=== PATIENT | male | born 1965 | race Caucasian/White ===

== ENCOUNTER 2017-10-24 13:48 | Emergency (ER) | payer MEDICAID ==
[2017-10-24] MEDS ORDERED: DEXAMETHASONE 10 MG/ML VIAL IVP STA (14:12)
[2017-10-24] MEDS ORDERED: THIAMINE INJ 100 MG, FOLIC ACID INJ 1 MG in SODIUM CHLORIDE 0.9% 100ML 100 ML IV STA (14:12)
[2017-10-24] MEDS ORDERED: cefTRIAXone 1 GM in SODIUM CHLORIDE 0.9% MINIBAG 100 ML IV STA (14:12)
[2017-10-24] MEDS ORDERED: MULTIVITAMIN 10 ML in SODIUM CHLORIDE 0.9% 1,000 ML IV STA (14:12)
[2017-10-24] MEDS ORDERED: MAGNESIUM SULFATE 2 GRAM 2 GM/50 ML BAG IV STA (14:12)
[2017-10-24 14:18] LABS: BASOPHILS % (AUTO) 0.8 %; EOSINOPHILS # (AUTO) 0.1 10^3/uL (0.0-0.7); EOSINOPHILS % (AUTO) 1.8 %; HCT - HEMATOCRIT 43.8 % (42.0-52.0); HGB - HEMOGLOBIN 15.4 g/dL (14.0-18.0); LYMPHOCYTES % (AUTO) 49.1 %; MEAN CORPUSCULAR HEMOGLOBIN 34.3 pg (27.0-31.0); MEAN CORPUSCULAR HGB CONC 35.1 g/dL (32.0-36.0); MEAN CORPUSCULAR VOLUME 97.8 fL (80.0-94.0); MEAN PLATELET VOLUME 8.1 fL (7.4-11.4); MONOCYTES # (AUTO) 0.7 10^3/uL (0.0-1.0); MONOCYTES % (AUTO) 10.8 %; NEUTROPHILS # (AUTO) 2.3 10^3/uL (1.5-6.6); NEUTROPHILS % (AUTO) 37.5 %; NUCLEATED RED BLOOD CELLS AUTO 0.1 /100WBC; RED BLOOD COUNT 4.48 10^6/uL (4.70-6.10); RED CELL DISTRIBUTION WIDTH 13.7 % (12.0-15.0); UNCORRECTED WHITE BLOOD COUNT 6.1 x10^3/uL; WHITE BLOOD COUNT 6.1 x10^3/uL (4.8-10.8)
[2017-10-24 14:28] LABS: ALBUMIN/GLOBULIN RATIO 1.1 (1.0-2.2); BILIRUBIN,TOTAL 0.3 mg/dL (0.2-1.0); CALCIUM 8.8 mg/dL (8.5-10.3); CREATININE 0.7 mg/dL (0.6-1.2); POTASSIUM 4.3 mmol/L (3.5-5.0); TOTAL PROTEIN 7.9 g/dL (6.7-8.2)
[2017-10-24] MEDS ORDERED: cefTRIAXone 1 GM VIAL ONE (14:31)
[2017-10-24] MEDS ORDERED: DEXAMETHASONE 10 MG/ML VIAL ONE (14:31)
[2017-10-24] MEDS ORDERED: MAGNESIUM SULFATE 2 GRAM 2 GM/50 ML BAG IV ONE (14:49)
--- NOTE | 2017-10-24 14:54 | ED Physician Documentation ---
PD HPI CHEST PAIN - Stated complaint Stated Complaint: CHEST PX - Chief complaint Chief Complaint: General - History obtained from History obtained from: Patient - History of Present Illness Timing - onset: How many weeks ago (2) Timing - onset during: Rest Timing - duration: Weeks (2) Timing - details: Gradual onset, Still present Quality: Sharp, Pain Location: Left chest Radiation: Back Improved by: Rest Worsened by: Inspiration, Movement, Palpation Associated symptoms: Shortness of air, Cough Similar symptoms before: Has not had sx before Recently seen: Not recently seen - Additional information Additional information: 52-year-old alcoholic male has developed pain in the left lower chest. He has had a cough which is worse than his usual and he has pain with any inspiration or movement. He relates a history of continued drainage from his nose with yellow and green phlegm as well as coughing up some blood. Review of Systems Constitutional: reports: Chills, Fatigue. denies: Fever Eyes: denies: Decreased vision Ears: denies: Ear pain Nose: reports: Rhinorrhea / runny nose, Congestion Throat: denies: Sore throat Cardiac: reports: Chest pain / pressure. denies: Palpitations Respiratory: reports: Dyspnea, Cough GI: denies: Nausea, Vomiting : denies: Dysuria Skin: denies: Rash Musculoskeletal: denies: Neck pain, Back pain Neurologic: denies: Generalized weakness, Focal weakness, Numbness PD PAST MEDICAL HISTORY - Past Medical History Past Medical History: Yes Cardiovascular: None Respiratory: None Neuro: None Endocrine/Autoimmune: None GI: Hepatitis : None HEENT: Other Psych: Depression Musculoskeletal: None Derm: None - Past Surgical History Past Surgical History: Yes - Present Medications Home Medications: Ambulatory Orders Medication Instructions Recorded Confirmed Benzonatate [Tessalon] 100 - 200 mg PO TID PRN #20 capsule 10/24/17 cefUROXime axetil [Ceftin] 500 mg PO Q12H #20 tablet 10/24/17 - Allergies Allergies/Adverse Reactions: Allergies Allergy/AdvReac Type Severity Reaction Status Date / Time cephalexin monohydrate * Allergy Severe Respiratory Verified 10/12/16 21:25 [From Keflex] Penicillins Allergy Severe Respiratory Verified 10/12/16 21:25 fluoxetine HCl * AdvReac Hallucinati Verified 10/12/16 21:25 [From Prozac] ons - Social History Does the pt smoke?: Yes Smoking Status: Current every day smoker Does the pt drink ETOH?: Yes Does the pt have substance abuse?: Yes - Immunizations Immunizations are current?: Yes - POLST Patient has POLST: No PD ED PE NORMAL - Vitals Vital signs reviewed: Yes (hypertensive mild ) - General General: No acute distress, Well developed/nourished, Other (intoxicated with AOB, cooperative and talkative. ) - HEENT HEENT: Atraumatic, PERRL, EOMI, Other (both TM's are inflamed the nasal cavity on the right has a specific area of erythema and drainage that appears chronic. ) - Neck Neck: Supple, no meningeal sign, No bony TTP - Cardiac Cardiac: RRR, No murmur - Respiratory Respiratory: No respiratory distress, Other (diminished breath sounds and specific left lower chest wall point tenderness reproducing the symptoms the patient is complaining of. ) - Abdomen Abdomen: Soft, Non tender - Back Back: No CVA TTP, No spinal TTP - Derm Derm: Normal color, Warm and dry, No rash - Extremities Extremities: No deformity, No edema - Neuro Neuro: No motor deficit, No sensory deficit Eye Opening: Spontaneous Motor: Obeys Commands Verbal: Oriented GCS Score: 15 - Psych Psych: Normal mood, Normal affect Results - Vitals Vitals: Vital Signs - 24 hr 10/24/17 10/24/17 13:54 16:02 Temperature 36.6 C 36.7 C Heart Rate 83 85 Respiratory 14 16 Rate Blood Pressure 120/88 H 114/75 O2 Saturation 96 96 Oxygen O2 Source Room air - EKG (time done) 1354 Rate: Rate (enter#) (88) Rhythm: NSR, LAE [place]: LAD Intervals: Prolonged QT Ischemia: ST elevation c/w repol Compare to prior EKG: Changed from prior EKG (SPT 06-16-15 rate has decreased) Computer interpretation: Agree with computer - Labs Labs: Laboratory Tests 10/24/17 10/24/17 10/24/17 13:58 13:58 13:58 WBC 6.1 RBC 4.48 L Hgb 15.4 Hct 43.8 MCV 97.8 H MCH 34.3 H MCHC 35.1 RDW 13.7 Plt Count 260 MPV 8.1 Neut # 2.3 Lymph # 3.0 [place] # 0.7 Eos # 0.1 Baso # 0.0 Absolute Nucleated RBC 0.00 Nucleated RBC % 0.1 Sodium 139 Potassium 4.3 Chloride 104 Carbon Dioxide 23 Anion Gap 12.0 BUN 10 Creatinine 0.7 Estimated GFR (MDRD) 119 Glucose 104 H Calcium 8.8 Total Bilirubin 0.3 AST 28 ALT 27 Alkaline Phosphatase 66 Troponin I < 0.04 Total Protein 7.9 Albumin 4.1 Globulin 3.8 Albumin/Globulin Ratio 1.1 Lipase 32 Ethyl Alcohol 374.3 - Rads (name of study) 2 view chest Radiology: Prelim report reviewed (Impression: Normal two-view chest radiography.), EMP read indepedently, See rad report Procedures - IVC sono (time) 1400 Bedside IVC sono: IVC measures (cm) (1.2), IVC collapsed c insp (cm) (complete) , Dehydration PD MEDICAL DECISION MAKING - ED course Complexity details: reviewed old records, reviewed results, re-evaluated patient , considered differential, d/w patient ED course: 52-year-old alcoholic male presents to the emergency department while intoxicated with the complaint of pain in the left chest. He has been having symptoms for 3 days. He has been having a cough for the past 3 weeks worse than his usual he is coughing up some blood and is getting a lot of phlegm from his nose. On examination he has bilateral otitis and his chest x-ray appears clear his electrocardiogram is nondiagnostic and his troponin is negative after 3 days of symptoms. I doubt any coronary artery syndrome. He is treated in the emergency department with Toradol dexamethasone and Rocephin with improvement. We will discharge him with treatment for his cough and infection. Departure - Departure Disposition: 01 Home, Self Care Clinical Impression: Alcohol intoxication, Dehydration, Atypical chest pain Otitis media Qualifiers: Otitis media type: suppurative Chronicity: acute Laterality: bilateral Recurrence: not specified as recurrent Spontaneous tympanic membrane rupture: without spontaneous rupture Qualified Code(s): H66.003 - Acute suppurative otitis media without spontaneous rupture of ear drum, bilateral Instructions: ED Chest Pain Atypical Unkn Cause, ED Dehydration, ED Alcohol Intoxication, ED Otitis Media Acute Adult Follow-Up: [facility] [Provider Group] Prescriptions: Benzonatate [Tessalon] 100 - 200 mg PO TID PRN #20 capsule PRN Reason: Cough cefUROXime axetil [Ceftin] 500 mg PO Q12H #20 tablet Discharge Date/Time: 10/24/17 16:22
--- NOTE | 2017-10-24 14:59 | XRAY Preliminary Report ---
Exam: XR CHEST 2 VIEW PA/LAT IMPRESSION: Normal 2-view chest radiography. [facility] SITE ID: [id number]
--- NOTE | 2017-10-24 15:01 | XRAY Report ---
EXAM: CHEST RADIOGRAPHY EXAM DATE: 10/24/2017 02:35 PM. CLINICAL HISTORY: LL chest pain/cough. COMPARISON: None. TECHNIQUE: 2 views. FINDINGS: Lungs/Pleura: No focal opacities evident. No pleural effusion. No pneumothorax. Normal volumes. Mediastinum: Heart and mediastinal contours are unremarkable. Other: None. IMPRESSION: Normal 2-view chest radiography. [facility] Referring Provider Line: [phone] SITE ID: [id number]
[2017-10-24 16:03] VITALS: BP 114/75
== END 2017-10-24 16:22 | disposition home or self-care (01) ==
LOC: ED 13:48
DX: F10.129 Alcohol abuse with intoxication, unspecified (principal); E86.0 Dehydration; R07.9 Chest pain, unspecified; H66.003 Acute suppurative otitis media without spontaneous rupture of ear drum, bilateral; R94.31 Abnormal electrocardiogram [ECG] [EKG]; K75.9 Inflammatory liver disease, unspecified; Y90.8 Blood alcohol level of 240 mg/100 ml or more
CPT/HCPCS: 36415; 71020; 80053; 80320; 83690; 84484; 85025; 93005; 96365; 96367; 96368; 96375; 99283; 99284; J3411

== ENCOUNTER 2018-01-24 22:51 | Outpatient (CLI) | payer MEDICAID | END 2018-01-24 22:52 | disposition critical access hospital (66) | LOC: EMS 22:51 | PROVIDERS: ATTEND Surgery | DX: R07.81 Pleurodynia (principal); S09.90XA Unspecified injury of head, initial encounter; X58.XXXA Exposure to other specified factors, initial encounter | CPT/HCPCS: A0425; A0429 ==

== ENCOUNTER 2018-01-24 23:09 | Emergency (ER) | payer MEDICAID ==
[2018-01-24 23:16] VITALS: BP 145/107
--- NOTE | 2018-01-24 23:17 | ED Physician Documentation ---
PD HPI TRUNK INJURY - Stated complaint Stated Complaint: GLF - LEFT FLANK PAIN, RIB PAIN - Chief complaint Chief Complaint: Ext Problem - History obtained from History obtained from: Patient - History of Present Illness Location: Right chest Type of injury: Fall Timing - onset: How many hours ago (1.5) Timing - details: Abrupt onset Pain level now: 8 Quality: Pain Improved by: Rest Worsened by: Moving, Palpating Associated symtptoms: No: Weakness, Numbness, Discoloration, Feel faint, Syncope Contributing factors: No: Anticoagulated Recently seen: Not recently seen - Additional information Additional information: patient says he tripped and fell at home approximately 90 minutes [employer]. He does not know what he struck, but he had sudden onset right chest wall pain. He says he has been drinking alcohol tonight. Denies head injury. He subsequently called 911 because of steadily worsening right chest wall pain. Review of Systems Cardiac: reports: Chest pain / pressure Respiratory: reports: Dyspnea. denies: Cough, Hemoptysis, Wheezing GI: denies: Abdominal Pain, Nausea, Vomiting PD PAST MEDICAL HISTORY - Past Medical History Cardiovascular: None Respiratory: None Neuro: None Endocrine/Autoimmune: None GI: Hepatitis : None HEENT: Other Psych: Depression Musculoskeletal: None Derm: None - Past Surgical History Past Surgical History: Yes - Present Medications Home Medications: Ambulatory Orders Medication Instructions Recorded Confirmed Lidocaine Patch 5% [Lidoderm Patch] 1 each TOP DAILY PRN #14 patch 01/25/18 - Allergies Allergies/Adverse Reactions: Allergies Allergy/AdvReac Type Severity Reaction Status Date / Time cephalexin monohydrate * Allergy Severe Respiratory Verified 01/24/18 23:16 [From Keflex] Penicillins Allergy Severe Respiratory Verified 01/24/18 23:16 fluoxetine HCl * AdvReac Hallucinati Verified 01/24/18 23:16 [From Prozac] ons - Social History Does the pt smoke?: Yes Smoking Status: Current every day smoker Does the pt drink ETOH?: Yes Does the pt have substance abuse?: Yes - Immunizations Immunizations are current?: Yes - POLST Patient has POLST: No PD ED PE NORMAL - Vitals Vital signs reviewed: Yes - General General: Alert and oriented X 3, Well developed/nourished, Other (NAD at rest at times, but appears to have painful discomfort with some movements, as well as when coughing) - Neck Neck: No bony TTP - Cardiac Cardiac: RRR, No murmur - Respiratory Respiratory: No respiratory distress, Other (mild bilateral end-expiratory wheezing) - Abdomen Abdomen: Soft, Non tender - Back Back: No spinal TTP - Derm Derm: Normal color, Warm and dry - Extremities Extremities: No tenderness to palpate, Normal ROM s pain, No edema - Neuro Neuro: Alert and oriented X 3, manager of data 2-12 intact, No motor deficit, No sensory deficit, Normal speech Eye Opening: Spontaneous Motor: Obeys Commands Verbal: Oriented GCS Score: 15 PD ED PE EXPANDED - Visual Whole body visual: 1 - tenderness Results - Vitals Vitals: Vital Signs - 24 hr 01/24/18 01/25/18 01/25/18 23:10 00:54 01:28 Temperature 36.7 C Heart Rate 86 69 80 Respiratory 16 16 22 Rate Blood Pressure 145/107 H 145/107 H O2 Saturation 100 97 Oxygen O2 Source Room air - Rads (name of study) right rib xrays with PA chest Radiology: Prelim report reviewed, See rad report PD MEDICAL DECISION MAKING - ED course Complexity details: reviewed results, re-evaluated patient, considered differential, d/w patient ED course: Patient has three rib fractures on xray without evidence of complication such as pneumo/hemothorax. He appears to be in appropriate painful distress; he repeatedly and adamantly refuses opiate/narcotic pain medication due to h/o abuse/addiction. He initially requests, repeatedly, an injection of medication that "knocks me out", which he indicates he has received in the past when he's been in the ED with agitation due to intoxication. Looking in previous records, he has been given zyprexa in the past. I explained to him that this would not be an appropriate medication for pain control. Given the amount of discomfort he is in, I tried to discuss with him the possibility of using this medication provided he was willing to stay in the ED for several hours (probably until the morning) because he would likely become very drowsy. However, as with some of my previous encounters with this patient, he repeatedly interrupted me as I tried to explain this option. He is argumentative at times, and is reluctant to be given any medication because of concern that I will give him either a narcotic or else a medication that would cause problems in light of his heavy, regular alcohol use. He eventually agreed to IM Toradol. He is difficult to converse with, frequently interrupting. He eventually called for a cab on his phone. He agreed to lidocaine patch. He was also given albuterol neb during ED stay for dyspnea which seemed to be separate from the pleuritic pain, and on reexam of lungs, wheezing had resolved. Departure - Departure Disposition: 01 Home, Self Care Clinical Impression: Ribs, multiple fractures Qualifiers: Encounter type: initial encounter Fracture type: closed Laterality: right Qualified Code(s): S22.41XA - Multiple fractures of ribs, right side, initial encounter for closed fracture Condition: Good Instructions: ED Fx Rib Follow-Up: [facility] [Provider Group] [facility] [Provider Group] Prescriptions: Lidocaine Patch 5% [Lidoderm Patch] 1 each TOP DAILY PRN #14 patch PRN Reason: Pain Comments: If the lidocaine patch helps with the pain overnight, then fill the prescription for the lidocaine patches and use them as directed. If you do not feel any relief with the patch, then do not fill the prescription for it. You should fill the prescription for the inhaler and use it as directed, as needed for shortness of breath. Discharge Date/Time: 01/25/18 01:31
[2018-01-25] MEDS ORDERED: KETOROLAC 60 MG/2 ML VIAL IM STA (00:10)
[2018-01-25] MEDS ORDERED: ALBUTEROL NEB 2.5 MG/3 ML INH STA (00:37)
--- NOTE | 2018-01-25 00:50 | XRAY Preliminary Report ---
Exam: XR RIBS W/PA CHEST RT IMPRESSION: 1. Fractures of approximately the right second, fourth, and fifth ribs. [facility] SITE ID: [id number]
--- NOTE | 2018-01-25 00:51 | XRAY Report ---
EXAM: RIGHT RIB RADIOGRAPHY EXAM DATE: 01/25/2018 12:11 AM. CLINICAL HISTORY: Fall, pain and tenderness right ribs. COMPARISON: 10/24/2017 and 04/01/2012. TECHNIQUE: 1 view of the chest and 2 views of the ribs. FINDINGS: Bones: Fractures of approximately the right second, fourth, and fifth ribs. Old fracture of the right seventh rib. Lungs: No alveolar consolidation or pleural effusion seen. No pneumothorax identified. Mediastinum: Within exam limitations, cardiomediastinal silhouette is unremarkable. Other: None. IMPRESSION: 1. Fractures of approximately the right second, fourth, and fifth ribs. [facility] Referring Provider Line: [phone] SITE ID: [id number]
[2018-01-25] MEDS ORDERED: LIDOCAINE PATCH 5% TOP STA (01:20)
--- NOTE | 2018-01-25 13:58 | ED Physician Documentation ---
ED Addendum - Addendum Addendum: 01/25/18 13:58 Took call from pharmacy, lidocaine patch is not covered, according to the chart there is a strong history of alcoholism as such I was not willing to prescribe a narcotic especially without seeing him personally. I told the pharmd he could have ibuprofen, 800 mg p.o. every 6 hours as needed for pain #30.
== END 2018-01-25 01:31 | disposition home or self-care (01) ==
LOC: EDUNIT# → ED 23:09
DX: S22.41XA Multiple fractures of ribs, right side, initial encounter for closed fracture (principal); W01.0XXA Fall on same level from slipping, tripping and stumbling without subsequent striking against object, initial encounter; K75.9 Inflammatory liver disease, unspecified; F17.200 Nicotine dependence, unspecified, uncomplicated
CPT/HCPCS: 71101; 94640; 96372; 99284; A9270; J7613

== ENCOUNTER 2018-02-23 17:29 | Emergency (ER) | payer MEDICAID ==
[2018-02-23 20:24] LABS: BASOPHILS % (AUTO) 0.6 %; EOSINOPHILS # (AUTO) 0.1 10^3/uL (0.0-0.7); EOSINOPHILS % (AUTO) 1.1 %; LYMPHOCYTES # (AUTO) 2.4 10^3/uL (1.5-3.5); LYMPHOCYTES % (AUTO) 35.4 %; MEAN CORPUSCULAR HGB CONC 32.9 g/dL (32.0-36.0); MEAN CORPUSCULAR VOLUME 97.4 fL (80.0-94.0); MEAN PLATELET VOLUME 8.1 fL (7.4-11.4); MONOCYTES # (AUTO) 0.5 10^3/uL (0.0-1.0); MONOCYTES % (AUTO) 7.4 %; NEUTROPHILS # (AUTO) 3.8 10^3/uL (1.5-6.6); NEUTROPHILS % (AUTO) 55.5 %; PLT - PLATELET COUNT 243 10^3/uL (130-450); RED BLOOD COUNT 4.68 10^6/uL (4.70-6.10); RED CELL DISTRIBUTION WIDTH 13.5 % (12.0-15.0); WHITE BLOOD COUNT 6.8 x10^3/uL (4.8-10.8)
[2018-02-23 20:34] LABS: ALBUMIN 4.8 g/dL (3.2-5.5); ALBUMIN/GLOBULIN RATIO 1.5 (1.0-2.2); BILIRUBIN,TOTAL 0.5 mg/dL (0.2-1.0); CALCIUM 8.5 mg/dL (8.5-10.3); CREATININE 0.9 mg/dL (0.6-1.2); TOTAL PROTEIN 8.1 g/dL (6.7-8.2)
--- NOTE | 2018-02-23 20:43 | XRAY Report ---
EXAM: CHEST RADIOGRAPHY EXAM DATE: 02/23/2018 08:26 PM. CLINICAL HISTORY: Chest pain, sob. COMPARISON: None. TECHNIQUE: 2 views. FINDINGS: Lungs/Pleura: No focal opacities evident. No pleural effusion. No pneumothorax. Normal volumes. Mediastinum: The heart size is normal. Other: None. IMPRESSION: Negative for an acute cardiopulmonary abnormality. [facility] Referring Provider Line: [phone] SITE ID: [id number]
--- NOTE | 2018-02-23 21:12 | ED Physician Documentation ---
PD HPI CHEST PAIN - Stated complaint Stated Complaint: CHEST PX/SOA - Chief complaint Chief Complaint: Cardiac - History obtained from History obtained from: Patient - History of Present Illness Timing - onset: How many hours ago (8) Timing - onset during: Rest Timing - details: Gradual onset, Intermittant Quality: Pressure, Sharp Location: Left chest Associated symptoms: No: Shortness of air, Diaphoresis, Nausea, Vomiting, Feeling faint / dizzy Similar symptoms before: Has not had sx before Recently seen: Not recently seen - Additional information Additional information: Patient is a 52 year old alcoholic male who is presenting to the emergency department for chest pain. Patient states that this morning he woke up with left sided chest pain. He states that he went to work but then came home and drank all day. He has had a history of rib fractures on the right but this is different according to the patient. Review of Systems Constitutional: denies: Fever, Chills Eyes: reports: Reviewed and negative Ears: reports: Reviewed and negative Nose: reports: Reviewed and negative Throat: reports: Reviewed and negative Cardiac: reports: Chest pain / pressure. denies: Palpitations, Pedal edema Respiratory: denies: Dyspnea, Cough, Wheezing GI: denies: Nausea, Vomiting : reports: Reviewed and negative Skin: denies: Lesions, Abrasion (s), Laceration (s) Musculoskeletal: denies: Back pain, Extremity pain, Extremity swelling Neurologic: reports: Reviewed and negative Endocrine: reports: Reviewed and negative PD PAST MEDICAL HISTORY - Past Medical History Past Medical History: Yes Cardiovascular: None Respiratory: None Neuro: None Endocrine/Autoimmune: None GI: Hepatitis : None HEENT: Other Psych: Depression Musculoskeletal: None Derm: None Other Past Medical History: etoh - Past Surgical History Past Surgical History: Yes - Present Medications Home Medications: Ambulatory Orders Medication Instructions Recorded Confirmed Lidocaine Patch 5% [Lidoderm Patch] 1 each TOP DAILY PRN #14 patch 01/25/18 - Allergies Allergies/Adverse Reactions: Allergies Allergy/AdvReac Type Severity Reaction Status Date / Time cephalexin monohydrate * Allergy Severe Respiratory Verified 01/24/18 23:16 [From Keflex] Penicillins Allergy Severe Respiratory Verified 01/24/18 23:16 fluoxetine HCl * AdvReac Hallucinati Verified 01/24/18 23:16 [From Prozac] ons - Social History Does the pt smoke?: Yes Smoking Status: Current every day smoker Does the pt drink ETOH?: Yes Does the pt have substance abuse?: Yes - Immunizations Immunizations are current?: Yes - POLST Patient has POLST: No PD ED PE NORMAL - Vitals Vital signs reviewed: Yes - General General: Alert and oriented X 3, No acute distress, Well developed/nourished - HEENT HEENT: Atraumatic, PERRL - Neck Neck: Supple, no meningeal sign - Cardiac Cardiac: RRR, No murmur - Respiratory Respiratory: No respiratory distress, Clear bilaterally - Abdomen Abdomen: Soft, Non tender, Non distended - Derm Derm: Normal color, Warm and dry, No rash - Extremities Extremities: No calf tenderness / cord - Neuro Neuro: Alert and oriented X 3, No motor deficit, Normal speech Eye Opening: Spontaneous Motor: Obeys Commands Verbal: Oriented GCS Score: 15 Results - Vitals Vitals: Vital Signs - 24 hr 02/23/18 17:38 Temperature 35.7 C L Heart Rate 96 Respiratory 17 Rate Blood Pressure 116/100 H O2 Saturation 100 Oxygen O2 Source Room air - EKG (time done) 1741 Rate: Rate (enter#) (88) Rhythm: NSR [place]: Normal QRS: Normal Ischemia: ST elevation c/w repol - Labs Labs: Laboratory Tests 02/23/18 02/23/18 02/23/18 20:15 20:15 20:15 WBC 6.8 RBC 4.68 L Hgb 15.0 Hct 45.5 MCV 97.4 H MCH 32.0 H MCHC 32.9 RDW 13.5 Plt Count 243 MPV 8.1 Neut # 3.8 Lymph # 2.4 [place] # 0.5 Eos # 0.1 Baso # 0.0 Absolute Nucleated RBC 0.00 Nucleated RBC % 0.0 Sodium 134 L Potassium 3.4 L Chloride 100 L Carbon Dioxide 21 Anion Gap 13.0 BUN 12 Creatinine 0.9 Estimated GFR (MDRD) 89 Glucose 108 H Calcium 8.5 Total Bilirubin 0.5 AST 34 ALT 41 Alkaline Phosphatase 69 Troponin I < 0.04 B-Natriuretic Peptide Total Protein 8.1 Albumin 4.8 Globulin 3.3 Albumin/Globulin Ratio 1.5 Lipase 20 L 02/23/18 20:15 WBC RBC Hgb Hct MCV MCH MCHC RDW Plt Count MPV Neut # Lymph # [place] # Eos # Baso # Absolute Nucleated RBC Nucleated RBC % Sodium Potassium Chloride Carbon Dioxide Anion Gap BUN Creatinine Estimated GFR (MDRD) Glucose Calcium Total Bilirubin AST ALT Alkaline Phosphatase Troponin I B-Natriuretic Peptide 9 Total Protein Albumin Globulin Albumin/Globulin Ratio Lipase - Rads (name of study) chest x-ray Radiology: Final report received (normal) PD MEDICAL DECISION MAKING - ED course Complexity details: reviewed old records, reviewed results, re-evaluated patient , considered differential, d/w patient ED course: patient was seen and examined at bedside. Patient was in no distress. ekg was performed and was normal sinus. Patient's diagnostics were all within normal limits. Patient had a heart score of 1. Patient required no further work up and was stable for discharge with outpatient follow up. Departure - Departure Disposition: 01 Home, Self Care Clinical Impression: Atypical chest pain Condition: Good Instructions: ED Chest Pain Atypical Unkn Cause Follow-Up: primary,care provider [Other] - Within 3 Days Comments: Your diagnostics today were within normal limits. There is no acute cardio- pulmonary abnormality appreciated. this is only a snapshot in time and it is important that you follow up with your doctor for further evaluation and care.
[2018-02-23 21:20] VITALS: BP 122/92
== END 2018-02-23 21:20 | disposition home or self-care (01) ==
LOC: ED 17:29
DX: R07.89 Other chest pain (principal); F17.200 Nicotine dependence, unspecified, uncomplicated; Z87.81 Personal history of (healed) traumatic fracture
CPT/HCPCS: 36415; 71046; 80053; 83690; 83880; 84484; 85025; 93005; 99283; 99284

== ENCOUNTER 2018-05-03 17:47 | Outpatient (CLI) | payer MEDICAID | END 2018-05-03 17:48 | disposition critical access hospital (66) | LOC: EMS 17:47 | PROVIDERS: ATTEND Surgery | DX: S01.81XA Laceration without foreign body of other part of head, initial encounter (principal); S50.312A Abrasion of left elbow, initial encounter; S50.311A Abrasion of right elbow, initial encounter; R55 Syncope and collapse; R05 Cough; W18.39XA Other fall on same level, initial encounter; Y92.029 Unspecified place in mobile home as the place of occurrence of the external cause | CPT/HCPCS: A0425; A0429 ==

== ENCOUNTER 2018-05-03 18:11 | Emergency (ER) | payer MEDICAID ==
[2018-05-03 19:44] LABS: MUDS CUTOFF CONCENTRATIONS CUTOFF CONC BELOW:
[2018-05-03 19:55] LABS: BASOPHILS % (AUTO) 0.9 %; EOSINOPHILS # (AUTO) 0.1 10^3/uL (0.0-0.7); EOSINOPHILS % (AUTO) 1.2 %; HGB - HEMOGLOBIN 13.7 g/dL (14.0-18.0); LYMPHOCYTES # (AUTO) 1.8 10^3/uL (1.5-3.5); LYMPHOCYTES % (AUTO) 33.9 %; MEAN CORPUSCULAR HEMOGLOBIN 32.3 pg (27.0-31.0); MEAN CORPUSCULAR HGB CONC 33.4 g/dL (32.0-36.0); MEAN CORPUSCULAR VOLUME 96.6 fL (80.0-94.0); MEAN PLATELET VOLUME 7.6 fL (7.4-11.4); MONOCYTES # (AUTO) 0.6 10^3/uL (0.0-1.0); MONOCYTES % (AUTO) 11.8 %; NEUTROPHILS # (AUTO) 2.8 10^3/uL (1.5-6.6); NEUTROPHILS % (AUTO) 52.2 %; PLT - PLATELET COUNT 196 10^3/uL (130-450); RED BLOOD COUNT 4.25 10^6/uL (4.70-6.10); RED CELL DISTRIBUTION WIDTH 14.4 % (12.0-15.0); WHITE BLOOD COUNT 5.4 x10^3/uL (4.8-10.8)
[2018-05-03 19:59] LABS: AMPHETAMINE SCREEN,URINE NEGATIVE (NEGATIVE); BENZODIAZEPINES SCREEN, URINE NEGATIVE (NEGATIVE); COCAINE SCREEN URINE NEGATIVE (NEGATIVE); METHADONE SCREEN, URINE NEGATIVE (NEGATIVE); METHAMPHETAMINES SCREEN, URINE NEGATIVE (NEGATIVE); OPIATE SCREEN, URINE NEGATIVE (NEGATIVE); OXYCODONE SCREEN, URINE NEGATIVE (NEGATIVE); PROPOXYPHENE SCREEN, URINE NEGATIVE (NEGATIVE); TRICYCLIC ANTIDEPRESSANT,URINE NEGATIVE (NEGATIVE)
--- NOTE | 2018-05-03 20:15 | XRAY Report ---
EXAM: CHEST RADIOGRAPHY EXAM DATE: 05/03/2018 07:45 PM. CLINICAL HISTORY: Cough. COMPARISON: 02/23/18. TECHNIQUE: 1 view. FINDINGS: Lungs/Pleura: No dense consolidation. No large effusion or pneumothorax. No pulmonary edema. Mediastinum: Heart and mediastinal contours are unremarkable. Other: None. IMPRESSION: No acute radiographic pulmonary abnormalities. [facility] Referring Provider Line: [phone] SITE ID: [id number]
--- NOTE | 2018-05-03 20:15 | XRAY Preliminary Report ---
Exam: XR CHEST 1 VIEW X-RAY IMPRESSION: No acute radiographic pulmonary abnormalities. [facility] SITE ID: [id number]
[2018-05-03 20:19] LABS: ALBUMIN 4.1 g/dL (3.2-5.5); ALBUMIN/GLOBULIN RATIO 1.3 (1.0-2.2); BILIRUBIN,TOTAL 0.4 mg/dL (0.2-1.0); CALCIUM 8.8 mg/dL (8.5-10.3); CREATININE 0.8 mg/dL (0.6-1.2); TOTAL PROTEIN 7.3 g/dL (6.7-8.2)
[2018-05-03] MEDS ORDERED: POTASSIUM CHLORIDE 20 MEQ TABLET PO STA (20:37)
[2018-05-03] MEDS ORDERED: POTASSIUM CHLOR 10 MEQ/100 ML 10 MEQ/100 ML BAG IV ONE (20:37)
[2018-05-03] MEDS ORDERED: CETIRIZINE 10 MG TABLET PO STA (20:38)
--- NOTE | 2018-05-03 21:18 | ED Physician Documentation ---
PD HPI SYNCOPE - Stated complaint Stated Complaint: SYNCOPE - Chief complaint Chief Complaint: Resp - History obtained from History obtained from: Patient, EMS - History of Present Illness Witnessed: Unwitnessed Timing - onset: Today Preceding symptoms: Other (cough) Contributing factors: Other (intoxicated) Similar symptoms before: Work up / diagnostics Recently seen: Not recently seen - Additional information Additional information: Patient is a 53 year old male with a history of alcohol abuse who is presenting to the emergency department for syncope. patient states that he has had a cough and today while he was on the street he had a coughing fit and coughed so much he passed out. Patient also admits drinking throughout the day today. Review of Systems Ten Systems: 10 systems reviewed and negative Neurologic: reports: Syncope. denies: Headache, Head injury PD PAST MEDICAL HISTORY - Past Medical History Past Medical History: Yes Cardiovascular: None Respiratory: None Endocrine/Autoimmune: None GI: Hepatitis : None HEENT: Other Psych: Depression Musculoskeletal: None Derm: None - Past Surgical History Past Surgical History: Yes - Present Medications Home Medications: Ambulatory Orders Medication Instructions Recorded Confirmed Lidocaine Patch 5% [Lidoderm Patch] 1 each TOP DAILY PRN #14 patch 01/25/18 Albuterol Sulfate [Proair Hfa 05/03/18 Inhaler] Fluticasone 44 Mcg [Flovent] 05/03/18 - Allergies Allergies/Adverse Reactions: Allergies Allergy/AdvReac Type Severity Reaction Status Date / Time cephalexin monohydrate * Allergy Severe Respiratory Verified 05/03/18 19:14 [From Keflex] Penicillins Allergy Severe Respiratory Verified 05/03/18 19:14 fluoxetine HCl * AdvReac Hallucinati Verified 05/03/18 19:14 [From Prozac] ons - Social History Does the pt smoke?: Yes Smoking Status: Current every day smoker Does the pt drink ETOH?: Yes Does the pt have substance abuse?: Yes - Immunizations Immunizations are current?: Yes - POLST Patient has POLST: No PD ED PE NORMAL - Vitals Vital signs reviewed: Yes - General General: Alert and oriented X 3, No acute distress - HEENT HEENT: Atraumatic, Moist mucous membranes - Neck Neck: No bony TTP - Cardiac Cardiac: RRR - Respiratory Respiratory: No respiratory distress - Abdomen Abdomen: Non distended - Derm Derm: Normal color, Warm and dry - Extremities Extremities: No deformity - Neuro Neuro: Alert and oriented X 3, 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, No motor deficit, No sensory deficit, Normal speech Eye Opening: Spontaneous Motor: Obeys Commands Verbal: Oriented GCS Score: 15 Results - Vitals Vitals: Vital Signs - 24 hr 05/03/18 05/03/18 05/03/18 18:17 19:08 21:13 Temperature 36.7 C Heart Rate 109 H 113 H 98 Respiratory 98 H 26 H 16 Rate Blood Pressure 123/89 H 119/57 L 108/67 O2 Saturation 95 95 05/03/18 21:53 Temperature Heart Rate 100 Respiratory 16 Rate Blood Pressure 111/69 O2 Saturation 95 Oxygen O2 Source Room air - EKG (time done) 1817 Rate: Rate (enter#) (103) Rhythm: Sinus tachycardia [place]: Anterior hemiblock Intervals: Normal [place] QRS: Normal Ischemia: Normal ST segments Compare to prior EKG: Unchanged from prior EKG - Labs Labs: Laboratory Tests 05/03/18 05/03/18 05/03/18 18:46 19:45 19:45 WBC 5.4 RBC 4.25 L Hgb 13.7 L Hct 41.0 L MCV 96.6 H MCH 32.3 H MCHC 33.4 RDW 14.4 Plt Count 196 MPV 7.6 Neut # (Auto) 2.8 Lymph # (Auto) 1.8 [place] # (Auto) 0.6 Eos # (Auto) 0.1 Baso # (Auto) 0.0 Absolute Nucleated RBC 0.00 Nucleated RBC % 0.1 Sodium 134 L Potassium 2.9 L Chloride 101 Carbon Dioxide 20 L Anion Gap 13.0 BUN 11 Creatinine 0.8 Estimated GFR (MDRD) 102 Glucose 146 H Calcium 8.8 Total Bilirubin 0.4 AST 39 ALT 40 Alkaline Phosphatase 66 Troponin I Total Protein 7.3 Albumin 4.1 Globulin 3.2 Albumin/Globulin Ratio 1.3 Lipase 32 Urine Opiates Screen NEGATIVE Ur Oxycodone Screen NEGATIVE Urine Methadone Screen NEGATIVE Ur Propoxyphene Screen NEGATIVE Ur Barbiturates Screen NEGATIVE Ur Tricyclics Screen NEGATIVE Ur Phencyclidine Scrn NEGATIVE Ur Amphetamine Screen NEGATIVE U Methamphetamines Scrn NEGATIVE U Benzodiazepines Scrn NEGATIVE Urine Cocaine Screen NEGATIVE U Cannabinoids Screen NEGATIVE Ethyl Alcohol 224.7 05/03/18 19:45 WBC RBC Hgb Hct MCV MCH MCHC RDW Plt Count MPV Neut # (Auto) Lymph # (Auto) [place] # (Auto) Eos # (Auto) Baso # (Auto) Absolute Nucleated RBC Nucleated RBC % Sodium Potassium Chloride Carbon Dioxide Anion Gap BUN Creatinine Estimated GFR (MDRD) Glucose Calcium Total Bilirubin AST ALT Alkaline Phosphatase Troponin I < 0.04 Total Protein Albumin Globulin Albumin/Globulin Ratio Lipase Urine Opiates Screen Ur Oxycodone Screen Urine Methadone Screen Ur Propoxyphene Screen Ur Barbiturates Screen Ur Tricyclics Screen Ur Phencyclidine Scrn Ur Amphetamine Screen U Methamphetamines Scrn U Benzodiazepines Scrn Urine Cocaine Screen U Cannabinoids Screen Ethyl Alcohol PD MEDICAL DECISION MAKING - ED course Complexity details: reviewed old records, reviewed results, re-evaluated patient , considered differential, d/w patient ED course: patient was seen and examined at bedside. ekg was performed and was within normal limits. labs were drawn and urine was collected. Patient's diagnostics were within normal limits aside from low potassium. Patient's potassium was replaced both orally and IV. Patient required no further work up and was stable for for discharge with outpatient follow. Departure - Departure Disposition: 01 Home, Self Care Clinical Impression: Syncope Condition: Good Instructions: ED Fainting Unkn Cause Follow-Up: primary,care provider [Other] - Within 3 Days Comments: Your diagnostics today were within normal limits, aside from your potassium that was slightly low but has been replaced. It is important that you try to stay well hydrated and eat a balanced diet while eating. You should follow up with your doctor if your symptoms become more frequent. You should try to refrain such excessive drinking as it is likely exacerbating your issues. Discharge Date/Time: 05/03/18 22:13
[2018-05-03 21:54] VITALS: BP 111/69
== END 2018-05-03 22:13 | disposition home or self-care (01) ==
LOC: EDUNIT# → ED 18:11
DX: R55 Syncope and collapse (principal); R00.0 Tachycardia, unspecified; K75.9 Inflammatory liver disease, unspecified; F17.200 Nicotine dependence, unspecified, uncomplicated
CPT/HCPCS: 36415; 71045; 80053; 80306; 80320; 83690; 84484; 85025; 93005; 96365; 99284; A9270

== ENCOUNTER → 2018-05-06 | Outpatient (CLI) | payer MEDICAID | LOC: RT.N 10:46 | PROVIDERS: ATTEND Family Medicine | DX: Z01.810 Encounter for preprocedural cardiovascular examination (principal); M25.561 Pain in right knee; J44.9 Chronic obstructive pulmonary disease, unspecified | CPT/HCPCS: 93005 ==

== ENCOUNTER 2018-05-09 10:33 | Outpatient (CLI) | payer MEDICAID ==
[2018-05-09 13:36] LABS: BASOPHILS % (AUTO) 0.6 %; EOSINOPHILS # (AUTO) 0.1 10^3/uL (0.0-0.7); EOSINOPHILS % (AUTO) 1.7 %; HGB - HEMOGLOBIN 15.1 g/dL (14.0-18.0); LYMPHOCYTES % (AUTO) 43.3 %; MEAN CORPUSCULAR HGB CONC 32.9 g/dL (32.0-36.0); MEAN CORPUSCULAR VOLUME 100.3 fL (80.0-94.0); MONOCYTES # (AUTO) 0.5 10^3/uL (0.0-1.0); MONOCYTES % (AUTO) 11.1 %; NEUTROPHILS % (AUTO) 43.3 %; PLT - PLATELET COUNT 255 10^3/uL (130-450); RED BLOOD COUNT 4.58 10^6/uL (4.70-6.10); RED CELL DISTRIBUTION WIDTH 14.2 % (12.0-15.0); WHITE BLOOD COUNT 4.7 x10^3/uL (4.8-10.8)
[2018-05-09 13:54] LABS: HB2 TOTAL 17.2 g/dL; HEMOGLOBIN A1C 0.53 g/dL
[2018-05-09 14:16] LABS: CALCIUM 8.5 mg/dL (8.5-10.3); CREATININE 0.7 mg/dL (0.6-1.2)
== END 2018-05-09 10:34 | disposition home or self-care (01) ==
LOC: LAB.N 10:33
PROVIDERS: ATTEND Family Medicine
DX: Z01.812 Encounter for preprocedural laboratory examination (principal); J44.9 Chronic obstructive pulmonary disease, unspecified; M25.561 Pain in right knee; R73.9 Hyperglycemia, unspecified
CPT/HCPCS: 36415; 80048; 83036; 85025

== ENCOUNTER 2018-05-10 13:15 | Outpatient (CLI) | payer MEDICAID ==
[2018-05-10] MEDS ORDERED: ALBUTEROL NEB 2.5 MG/3 ML INH ONE (16:00)
[2018-05-10] MEDS ORDERED: ALBUTEROL NEB 2.5 MG/3 ML INH SCH (16:00)
== END 2018-05-10 13:16 | disposition home or self-care (01) ==
LOC: RT 13:15
PROVIDERS: ATTEND Nurse Practitioner
DX: J44.9 Chronic obstructive pulmonary disease, unspecified (principal)
CPT/HCPCS: 94060; 94664

== ENCOUNTER 2018-12-08 15:07 | Outpatient (CLI) | payer MEDICAID ==
--- NOTE | 2018-12-09 11:02 | Ultrasound Report ---
Reason: SCROTAL PAIN Procedure Date: 12/08/2018 Accession Number: [id number] / [id number] Procedure: US - Testicle w/Doppler CPT Code: FULL RESULT: EXAM: SCROTAL ULTRASOUND EXAM DATE: 12/08/2018 04:00 PM. CLINICAL HISTORY: Scrotal pain. COMPARISON: None. TECHNIQUE: Real-time scanning was performed with static images obtained. Color-flow images were utilized. FINDINGS: Right: Testis: 3.3 x 2.7 x 1.8 cm. Normal size and echotexture. No mass, calcification, or abnormal blood flow. Epididymis: 3.0 x 0.7 x 0.7 cm. Normal size and echotexture. No mass or abnormal blood flow. Hydrocele: None. Varicocele: None. Left: Testis: 2.5 x 2.7 x 1.8 cm. Normal size and echotexture. No mass, calcification, or abnormal blood flow. Epididymis: 2.0 x 0.8 x 0.8 cm. Normal size and echotexture. No mass or abnormal blood flow. Hydrocele: None. Varicocele: None. IMPRESSION: Normal scrotal ultrasound. RADIA
== END 2018-12-08 15:08 | disposition home or self-care (01) ==
LOC: DI 15:07
PROVIDERS: ATTEND Family Medicine
DX: N50.82 Scrotal pain (principal)
CPT/HCPCS: 76870; 93975

== ENCOUNTER 2019-02-06 13:30 | Outpatient (CLI) | payer MEDICAID ==
[2019-02-06 19:29] LABS: BASOPHILS % (AUTO) 0.9 %; EOSINOPHILS % (AUTO) 0.9 %; HGB - HEMOGLOBIN 14.5 g/dL (14.0-18.0); LYMPHOCYTES # (AUTO) 1.3 10^3/uL (1.5-3.5); LYMPHOCYTES % (AUTO) 25.3 %; MEAN CORPUSCULAR HEMOGLOBIN 32.5 pg (27.0-31.0); MEAN CORPUSCULAR HGB CONC 32.9 g/dL (32.0-36.0); MEAN CORPUSCULAR VOLUME 98.8 fL (80.0-94.0); MEAN PLATELET VOLUME 9.1 fL (7.4-11.4); MONOCYTES # (AUTO) 0.5 10^3/uL (0.0-1.0); NEUTROPHILS # (AUTO) 3.2 10^3/uL (1.5-6.6); NEUTROPHILS % (AUTO) 62.9 %; PLT - PLATELET COUNT 220 10^3/uL (130-450); RED BLOOD COUNT 4.45 10^6/uL (4.70-6.10); RED CELL DISTRIBUTION WIDTH 15.7 % (12.0-15.0); WHITE BLOOD COUNT 5.1 x10^3/uL (4.8-10.8)
[2019-02-06 19:48] LABS: CALCIUM 9.4 mg/dL (8.5-10.3); CREATININE 0.9 mg/dL (0.6-1.2)
[2019-02-06 19:51] LABS: PSA FREE 0.25 ng/mL (0.16-2.81)
[2019-02-06 19:52] LABS: PSA TOTAL 1.82 ng/mL (0.000-2.000)
== END 2019-02-06 23:59 | disposition home or self-care (01) ==
LOC: LAB.N 13:30
PROVIDERS: ATTEND Physician Assistant Medical
DX: N50.82 Scrotal pain (principal)
CPT/HCPCS: 36415; 80048; 84153; 84154; 85025

== ENCOUNTER 2019-03-09 15:02 | Outpatient (CLI) | payer MEDICAID ==
--- NOTE | 2019-03-10 10:10 | Ultrasound Report ---
Reason: SCROTAL PAIN Procedure Date: 03/09/2019 Accession Number: [id number] / [id number] Procedure: US - Testicle CPT Code: FULL RESULT: EXAM: SCROTAL ULTRASOUND EXAM DATE: 03/09/2019 04:34 PM. CLINICAL HISTORY: Scrotal pain. COMPARISON: None. TECHNIQUE: Real-time scanning was performed with static images obtained. Color-flow images were utilized. FINDINGS: Right: Testis: 3.8 x 2.3 x 3.0 cm. Normal size and echotexture. No mass, calcification, or abnormal blood flow. Epididymis: 0.9 x 1.7 x 1.0 cm. Normal size and echotexture. No mass or abnormal blood flow. Hydrocele: None. Varicocele: None. Left: Testis: 4.0 x 2.2 x 2.7 cm. Normal size and echotexture. No mass, calcification, or abnormal blood flow. Epididymis: 0.8 x 1.3 x 0.7 cm. Normal size and echotexture. A 0.4 cm epididymal cyst is noted, common typically benign finding. No solid mass or abnormal blood flow. Hydrocele: None. Varicocele: None. IMPRESSION: Normal scrotal ultrasound. RADIA
== END 2019-03-09 15:03 | disposition home or self-care (01) ==
LOC: DI 15:02
PROVIDERS: ATTEND Physician Assistant Medical
DX: N50.82 Scrotal pain (principal)
CPT/HCPCS: 76870

== ENCOUNTER 2019-03-25 16:43 | Emergency (ER) | payer MEDICAID ==
[2019-03-25 16:53] VITALS: BP 133/94
--- NOTE | 2019-03-25 16:57 | ED Physician Documentation ---
History of Present Illness - Stated complaint Stated Complaint: MALE - Chief complaint Chief Complaint: General - History obtained from History obtained from: Patient - History of Present Illness Timing: Chronic (This is a 53-year-old gentleman with history of alcoholism who presents by private vehicle for ongoing right groin and low back pain that is been going on for 4 months. He says it feels like he is being stabbed when he sitting down. He had 2 scrotal ultrasounds for this which are negative. He says his testicles do not hurt per se and he is urinating okay and can ejaculate and have sex fine, just hurts to sit. He admits to drinking alcohol including just prior to arrival.) Review of Systems Constitutional: denies: Fever, Chills, Fatigue Cardiac: denies: Chest pain / pressure, Palpitations Respiratory: denies: Dyspnea, Cough GI: denies: Nausea, Vomiting, Constipation, Diarrhea, Hematemesis, Bloody / black stool : denies: Dysuria, Frequency PD PAST MEDICAL HISTORY - Past Medical History Cardiovascular: None Respiratory: None Endocrine/Autoimmune: None GI: Hepatitis : None HEENT: Other Psych: Depression Musculoskeletal: None Derm: None - Past Surgical History Past Surgical History: Yes - Present Medications Home Medications: Ambulatory Orders Medication Instructions Recorded Confirmed Albuterol Sulfate [Proair Hfa 2 puffs INH PRN PRN 05/03/18 03/25/19 Inhaler] Fluticasone 44 Mcg [Flovent] 2 puffs IH PRN PRN 05/03/18 03/25/19 Meloxicam [Mobic] 7.5 mg PO BID PRN #20 tablet 03/25/19 Omeprazole 1 tab ORAL DAILY 03/25/19 03/25/19 - Allergies Allergies/Adverse Reactions: Allergies Allergy/AdvReac Type Severity Reaction Status Date / Time cephalexin monohydrate * Allergy Severe Respiratory Verified 03/25/19 16:53 [From Keflex] Penicillins Allergy Severe Respiratory Verified 03/25/19 16:53 fluoxetine HCl * AdvReac Hallucinati Verified 03/25/19 16:53 [From Prozac] ons - Social History Does the pt smoke?: Yes Smoking Status: Current every day smoker Does the pt drink ETOH?: Yes Does the pt have substance abuse?: Yes - Immunizations Immunizations are current?: Yes - POLST Patient has POLST: No PD ED PE NORMAL - Vitals Vital signs reviewed: Yes - General General: Alert and oriented X 3, Other (Bloodshot eyes, slow slurred speech, alert and oriented) - HEENT HEENT: PERRL - Abdomen Abdomen: Normal bowel sounds, Soft, Non tender - Male Male : Other (Normal male genitalia with normal lie, normal cremaster reflexes, no scrotal tenderness or masses.) - Back Back: No CVA TTP, No spinal TTP - Derm Derm: Normal color, Warm and dry - Neuro Neuro: Alert and oriented X 3, Normal speech Results - Vitals Vitals: Vital Signs - 24 hr 03/25/19 16:48 Temperature 36.7 C Heart Rate 109 H Respiratory 16 Rate Blood Pressure 133/94 H O2 Saturation 96 Oxygen O2 Source Room air - Labs Labs: Laboratory Tests 03/25/19 17:12 Urine Color YELLOW Urine Clarity CLEAR Urine pH 5.5 Ur Specific [place] 1.010 Urine Protein NEGATIVE Urine Glucose (UA) NEGATIVE Urine Ketones NEGATIVE Urine Occult Blood NEGATIVE Urine Nitrite NEGATIVE Urine Bilirubin NEGATIVE Urine Urobilinogen 0.2 (NORMAL) Ur Leukocyte Esterase NEGATIVE Ur Microscopic Review NOT INDICATED Urine Culture Comments NOT INDICATED PD MEDICAL DECISION MAKING - ED course ED course: This is a 53-year-old gentleman who presents with basically now chronic groin and back pain that is worse with sitting. He has had 2 scrotal ultrasounds for same both which were negative. His examination is basically unremarkable. A CT was done with notation of a fatty liver, otherwise normal. To my eye there is significant degenerative change in the spine and given the entire picture I suspect this is referred radicular pain from his back. There is no evidence of an emergency medical condition. He is administered meloxicam, but no narcotics given his alcoholism and active alcohol intoxication. He was advised to follow- up with his urologist as scheduled, but also to see his primary care physician with this new information. He understands the importance of quitting alcohol and verbalizes this back to me, but he does not seem like he is interested in a lifestyle change at this juncture. Departure - Departure Disposition: 01 Home, Self Care Clinical Impression: Alcohol intoxication, Groin pain, chronic, right Back pain Qualifiers: Back pain location: low back pain Chronicity: chronic Back pain laterality: right Sciatica presence: without sciatica Qualified Code(s): M54.5 - Low back pain Condition: Good Record reviewed to determine appropriate education?: Yes Instructions: ED Chronic Pain Management, ED Neck Back Pain General Prescriptions: Meloxicam [Mobic] 7.5 mg PO BID PRN #20 tablet PRN Reason: Pain Comments: You are developing evidence of alcoholic liver damage, the most important thing you can do for your health is to quit drinking. Follow-up with urologist as scheduled, also talk with your primary care physician and let him know that to my eye the imaging and exam today suggests that the pain may be referred from your spine.
[2019-03-25] MEDS ORDERED: MELOXICAM 7.5 MG TABLET PO STA (17:08)
[2019-03-25 17:16] LABS: BILIRUBIN,URINE NEGATIVE (NEGATIVE); GLUCOSE, URINE (UA) NEGATIVE (NEGATIVE); KETONES,URINE (UA) NEGATIVE (NEGATIVE); LEUKOCYTE ESTERASE, URINE NEGATIVE (NEGATIVE); NITRITE,URINE NEGATIVE (NEGATIVE); OCCULT BLOOD,URINE NEGATIVE (NEGATIVE); PH,URINE 5.5 PH (5.0-7.5); PROTEIN,URINE NEGATIVE (NEGATIVE); UROBILINOGEN,URINE 0.2 (NORMAL) E.U./dL (NORMAL)
[2019-03-25 17:17] LABS: CLARITY,URINE CLEAR (CLEAR)
--- NOTE | 2019-03-25 17:27 | CT Report ---
Reason: R inguinal/back pain Procedure Date: 03/25/2019 Accession Number: [id number] / [id number] Procedure: CT - Abdomen/Pelvis WO CPT Code: FULL RESULT: EXAM: CT ABDOMEN AND PELVIS (CT KUB) EXAM DATE: 03/25/2019 05:06 PM. CLINICAL HISTORY: Right inguinal/back pain. COMPARISONS: None. TECHNIQUE: Routine axial helical CT imaging was performed through the abdomen and pelvis without IV contrast. Reconstructions: Coronal and sagittal. In accordance with CT protocol optimization, one or more of the following dose reduction techniques were utilized for this exam: automated exposure control, adjustment of mA and/or KV based on patient size, or use of iterative reconstructive technique. FINDINGS: Lung Bases: Unremarkable. Right Kidney/Ureter: No stones, hydronephrosis, or hydroureter. No perinephric fat stranding. Left Kidney/Ureter: No stones, hydronephrosis, or hydroureter. No perinephric fat stranding. Other Solid Organs: The liver demonstrates decreased attenuation. There is a 1.2 cm cyst in the right hepatic lobe. Gallbladder/Bile Ducts: Unremarkable. Peritoneal Cavity: No free fluid, free air or andrey adenopathy. Bowel is grossly unremarkable. Pelvic Organs: No bladder stones or wall thickening. Noncontrast images of the visualized pelvic organs are unremarkable. Vasculature: Unremarkable. Other: L4-L5 and L5-S1 disk-related degenerative changes. IMPRESSION: 1. No urinary tract stones or obstruction. 2. Fatty liver. RADIA
== END 2019-03-25 18:05 | disposition home or self-care (01) ==
LOC: ED 16:43
DX: R10.31 Right lower quadrant pain (principal); F10.20 Alcohol dependence, uncomplicated; G89.29 Other chronic pain; M54.5 Low back pain; K76.89 Other specified diseases of liver; F17.200 Nicotine dependence, unspecified, uncomplicated
CPT/HCPCS: 74176; 81003; 99282; 99283; A9270; 81001; 87086

== ENCOUNTER 2019-03-26 20:25 | Outpatient (CLI) | payer MEDICAID | END 2019-03-26 20:26 | disposition critical access hospital (66) | LOC: EMS 20:25 | PROVIDERS: ATTEND Surgery | DX: N50.811 Right testicular pain (principal); N45.2 Orchitis | CPT/HCPCS: A0425; A0429 ==

== ENCOUNTER 2019-03-26 20:45 | Emergency (ER) | payer MEDICAID ==
[2019-03-26] MEDS ORDERED: KETOROLAC 60 MG/2 ML VIAL IM STA (20:50)
--- NOTE | 2019-03-26 20:52 | ED Physician Documentation ---
PD HPI ABD PAIN - Stated complaint Stated Complaint: MALE - History obtained from History obtained from: Patient, EMS - History of Present Illness Timing - onset: Other (This is a 53-year-old alcoholic who is been having ongoing right groin pain radiating to the right back for the last 4 months, he has had 2- testicular sonograms which were negative. And was seen yesterday in the emergency department, labs and a CAT scan were negative except to my eye had degenerative disease in the back and it was hypothesized that this may be referred radicular pain. His examination was normal. He was discharged after shot of Toradol which did help. He was given a prescription for meloxicam which he did not fill. He returns for the same complaints, there is no acute nature to the complaints. There is no change in his pain, no worsening.) Review of Systems Constitutional: denies: Fever, Chills Nose: denies: Rhinorrhea / runny nose, Congestion Throat: denies: Sore throat Cardiac: denies: Chest pain / pressure, Palpitations Respiratory: denies: Dyspnea PD PAST MEDICAL HISTORY - Past Medical History Cardiovascular: None Respiratory: None Endocrine/Autoimmune: None GI: Hepatitis : None HEENT: Other Psych: Depression Musculoskeletal: None Derm: None - Past Surgical History Past Surgical History: Yes Ortho: Knee replacement - Present Medications Home Medications: Ambulatory Orders Medication Instructions Recorded Confirmed Albuterol Sulfate [Proair Hfa 2 puffs INH PRN PRN 05/03/18 03/25/19 Inhaler] Fluticasone 44 Mcg [Flovent] 2 puffs IH PRN PRN 05/03/18 03/25/19 Meloxicam [Mobic] 7.5 mg PO BID PRN #20 tablet 03/25/19 Omeprazole 1 tab ORAL DAILY 03/25/19 03/25/19 - Allergies Allergies/Adverse Reactions: Allergies Allergy/AdvReac Type Severity Reaction Status Date / Time cephalexin monohydrate * Allergy Severe Respiratory Verified 03/25/19 16:53 [From Keflex] Penicillins Allergy Severe Respiratory Verified 03/25/19 16:53 fluoxetine HCl * AdvReac Hallucinati Verified 03/25/19 16:53 [From Prozac] ons - Social History Does the pt smoke?: Yes Smoking Status: Current every day smoker Does the pt drink ETOH?: Yes Does the pt have substance abuse?: Yes - Immunizations Immunizations are current?: Yes - POLST Patient has POLST: No PD ED PE NORMAL - Vitals Vital signs reviewed: Yes - General General: Alert and oriented X 3, Other (He is friendly, smells of alcohol, slightly slurred speech) - Abdomen Abdomen: Normal bowel sounds, Soft, Other (He has a nontender reducible umbilical hernia, no other abdominal tenderness. Genitourinary examination demonstrates normal testicles with normal lie, normal cremaster reflexes bilaterally, no tenderness.) - Neuro Neuro: Alert and oriented X 3, Normal speech Results - Vitals Vitals: Oxygen O2 Source Room air PD MEDICAL DECISION MAKING - ED course ED course: This is a 53-year-old gentleman who presents with chronic right groin pain by ambulance. He had relief with Toradol yesterday. He is an alcoholic. He was again admonished to quit drinking. We repeated the Toradol. Departure - Departure Disposition: 01 Home, Self Care Clinical Impression: Alcohol intoxication, Groin pain, chronic, right Condition: Good Record reviewed to determine appropriate education?: Yes Instructions: ED Chronic Pain Management Comments: Fill the prescription you were given yesterday tomorrow morning. Follow-up with urologist as scheduled and your primary care physician. Return for new or worsening symptoms.
[2019-03-26 20:55] VITALS: BP 159/106
== END 2019-03-26 21:30 | disposition home or self-care (01) ==
LOC: EDUNIT# → ED 20:45
DX: F10.220 Alcohol dependence with intoxication, uncomplicated (principal); R10.30 Lower abdominal pain, unspecified; G89.29 Other chronic pain; M54.9 Dorsalgia, unspecified; K42.9 Umbilical hernia without obstruction or gangrene; F17.200 Nicotine dependence, unspecified, uncomplicated
CPT/HCPCS: 96372; 99282; 99283

== ENCOUNTER 2019-09-07 12:59 | Outpatient (CLI) | payer MEDICAID ==
--- NOTE | 2019-09-07 15:07 | MRI Report ---
Reason: LOW BACK PAIN, DEGEN LUMB INTERVERTEBRAL DISC Procedure Date: 09/07/2019 Accession Number: [id number] / [id number] Procedure: MRI - Lumbar Spine W/O CPT Code: FULL RESULT: EXAM: MRI LUMBAR SPINE WITHOUT CONTRAST EXAM DATE: 09/07/2019 01:50 PM. CLINICAL HISTORY: Low back pain, degenerative lumbar intervertebral disk. COMPARISON: ABDOMEN/PELVIS W/O 03/25/2019 5:01 PM. TECHNIQUE: Multiplanar, multisequence T1-weighted and fluid-sensitive sequences of the lumbar spine from T12 to S1 without contrast. Other: None. FINDINGS: There is straightening of the normal lumbar lordosis. There is desiccation of the intervertebral disk spaces from T12-L1 through L5-S1. There is a moderate decrease in the height of the disk at T12-L1, L1-L2, mild to moderate at L2-L3, moderate at L3-L4, moderate to severe at L4-L5 and L5-S1. There is a mixture of Modic type I and type II endplate degenerative change within the L4-L5 and L5-S1 endplates. There are small areas of additional Modic type II endplate degenerative change within the L1-L2 and L2-L3 endplates. There is prominence of the epidural space at the L5 level which appears to be secondary to hypertrophy within the anterior epidural space. This is similar to the prior CT of the abdomen and pelvis exam from 03/25/2019. This may be secondary to focal areas of epidural lipomatosis versus possibly an anatomical variant. There is a small perineural cyst posterior to S3 measuring 10 mm. The kidneys are without evidence of hydronephrosis. The abdominal aorta is of normal caliber. There is no significant atrophy of the paraspinal musculature or the psoas musculature. T12-L1: There is a small disk osteophyte complex producing a mild central canal stenosis. There is no significant foraminal stenosis. The facets are normal. L1-L2: There is no significant disk bulge, central or foraminal stenosis. The facets are normal. L2-L3: There is a small disk osteophyte complex producing a mild central canal stenosis. There is mild left facet arthropathy. There is mild ligamentum flavum hypertrophy. There is mild narrowing of the neural foramina bilaterally. L3-L4: There is a broad-based disk osteophyte complex eccentric to the left entering into the left foraminal space producing mild to moderate narrowing of the left neural foramen. There is mild narrowing of the right neural foramen. There is a moderate central canal stenosis. There is minimal left facet arthropathy. L4-L5: There is a broad-based disk bulge abutting the sac. There is a mild degree of epidural lipomatosis. The combination produces a moderate central canal stenosis. The facets are normal. There is a moderate right foraminal stenosis and mild to moderate left foraminal stenosis. L5-S1: There is prominent focal fatty hypertrophy in the anterior epidural space which may reflect an area of epidural lipomatosis. There are small areas of linear T1 hypointensity within it which may reflect prominence of the basivertebral plexus. However, other etiologies which can produce a similar radiographic appearance would include spinal angiolipoma. If such is suspected clinically, then further evaluation with postcontrast T1-weighted images can be obtained as deemed clinically appropriate. There is a small disk bulge. However, there is no contribution of the disk bulge to the central canal stenosis. At the L5 level the hypertrophy of the fat in the anterior epidural space and posterior lateral epidural spaces produces at least a moderate degree of central canal stenosis. At the L5-S1 level there is extension of disk osteophyte into the right foraminal space and left foraminal space producing moderate bilateral foraminal stenoses. IMPRESSION: 1. There is a moderate central canal stenosis at L3-L4 from a combination of a broad-based disk osteophyte complex in conjunction with facet arthropathy. 2. There is epidural lipomatosis which in combination with a broad-based disk bulge produces a moderate central canal stenosis at L4-L5. There is a moderate right foraminal stenosis. 3. There is hypertrophy of the fat within the anterior epidural space at the L5 level. There is a mild degree of hypertrophy of the fat in the posterior lateral epidural spaces. This combination produces at least a moderate to greater degree of central canal stenosis. The hypertrophy of the fat in the anterior epidural space may be secondary to epidural lipomatosis but given the linear areas of T1 hypointensity present, other etiologies such as spinal angiolipoma could potentially produce a similar radiographic appearance. Further characterization for this possibility can be obtained with postcontrast T1-weighted images to evaluate for evidence of enhancement. This can be performed as deemed clinically appropriate. There are moderate bilateral foraminal stenoses at L5-S1. Comment: The following findings are so common in adults without low back pain that while we report their presence, they must be interpreted with caution and in the context of the clinical situation. (Reference Robertk et al, Spine 2001) Prevalence of findings in patients without low back pain: Disk degeneration (any evidence): 92% Disk desiccation/T2 signal loss: 83% Disk height loss: 56% Disk bulge: 64% Disk protrusion: 32% Annular tear/high intensity zone: 38% RADIA
== END 2019-09-07 13:00 | disposition home or self-care (01) ==
LOC: DI 12:59
PROVIDERS: ATTEND Physician Assistant Medical
DX: M51.36 Other intervertebral disc degeneration, lumbar region (principal); M51.35 Other intervertebral disc degeneration, thoracolumbar region; M47.816 Spondylosis without myelopathy or radiculopathy, lumbar region; M48.061 Spinal stenosis, lumbar region without neurogenic claudication; M48.05 Spinal stenosis, thoracolumbar region
CPT/HCPCS: 72148

== ENCOUNTER 2020-02-16 13:39 | Outpatient (CLI) | payer MEDICAID ==
--- NOTE | 2020-02-16 19:34 | XRAY Report ---
Reason: KNEE PAIN Procedure Date: 02/16/2020 Accession Number: [id number] / [id number] Procedure: XRN - Knee 3 View RT CPT Code: Final Report FULL RESULT: EXAM: RIGHT KNEE RADIOGRAPHY EXAM DATE: 02/16/2020 01:54 PM. CLINICAL HISTORY: KNEE PAIN. Fall 2 months ago. COMPARISON: KNEE 3 VIEW RT 07/24/2013 4:44 PM. TECHNIQUE: 3 views. FINDINGS: Medial compartment right knee hemiarthroplasty, new since 2012, with grossly-anatomic alignment. No fracture or focal bone lesion is identified. Minimal patellofemoral compartment osteophyte formation. Small knee joint effusion. IMPRESSION: 1. Medial compartment right knee hemiarthroplasty with grossly-anatomic alignment. 2. Minimal knee joint effusion. 3. Minimal patellofemoral compartment osteoarthritis. RADIA
== END 2020-02-16 13:40 | disposition home or self-care (01) ==
LOC: DI.N 13:39
PROVIDERS: ATTEND Physician Assistant Medical
DX: M17.11 Unilateral primary osteoarthritis, right knee (principal); Z96.651 Presence of right artificial knee joint; M25.461 Effusion, right knee

== ENCOUNTER 2020-05-06 13:59 | Emergency (ER) | payer MEDICAID ==
[2020-05-06 14:09] VITALS: BP 140/94
--- NOTE | 2020-05-06 14:45 | ED Physician Documentation ---
PD HPI DYSPNEA - Stated complaint Stated Complaint: MED REFILL - Chief complaint Chief Complaint: Resp - History obtained from History obtained from: Patient - History of Present Illness Timing - onset: How many weeks ago (1 1/2) Timing - onset during: Light activity Timing - duration: Weeks (he has had some increasing dyspnea for 1 1/2 weeks since running out of usual inhalers. He had tried contacting clinic for refills and was unable to get appt nor notice of any refills. He had not heard back from the clinic and was feeling more dyspnea the past couple days, wheezing with daily work, so here for assistance/meds.) Timing - details: Gradual onset, Waxing and waning Inciting event(s): Out of meds. No: URI Improved by: Inhaler/neb (when he had them, inhalers worked well.) Associated symptoms: Cough (clear productive), Wheezing. No: Fever, Hemoptysis, Chest pain / discomfort, Bilateral edema Similar symptoms before: Diagnosis (COPD) Recently seen: Not recently seen (he had tried to get appt but is not for awhile due to clinic scheduling, per patient.) Review of Systems Constitutional: denies: Fever, Chills Nose: denies: Rhinorrhea / runny nose, Congestion Throat: denies: Sore throat Cardiac: denies: Chest pain / pressure, Palpitations Respiratory: reports: Dyspnea, Cough, Wheezing Skin: denies: Rash, Lesions Musculoskeletal: denies: Extremity swelling PD PAST MEDICAL HISTORY - Past Medical History Cardiovascular: None Respiratory: Asthma, COPD Endocrine/Autoimmune: None GI: Hepatitis, Cirrhosis : None HEENT: Other Psych: Depression Musculoskeletal: None Derm: None - Past Surgical History Past Surgical History: Yes Ortho: Knee replacement - Present Medications Home Medications: Ambulatory Orders Medication Instructions Recorded Confirmed Albuterol Sulfate [Proair Hfa 2 puffs INH PRN PRN 05/03/18 03/25/19 Inhaler] Fluticasone 44 Mcg [Flovent] 2 puffs IH PRN PRN 05/03/18 03/25/19 Meloxicam [Mobic] 7.5 mg PO BID PRN #20 tablet 03/25/19 Omeprazole 1 tab ORAL DAILY 03/25/19 03/25/19 Albuterol Sulfate [Albuterol 2 puffs IH QID #1 hfa.aer.ad 05/06/20 Sulfate Hfa] Budesonide/Formoterol Fumarate 2 puffs IH DAILY #1 hfa.aer.ad 05/06/20 [Symbicort 80-4.5 Mcg Inhaler] Fluticasone 44 Mcg [Flovent] 1 puffs INH BID #1 inhaler 05/06/20 dexAMETHasone [Decadron] 4 mg PO DAILY #5 tablet 05/06/20 - Allergies Allergies/Adverse Reactions: Allergies Allergy/AdvReac Type Severity Reaction Status Date / Time cephalexin monohydrate * Allergy Severe Respiratory Verified 05/06/20 14:03 [From Keflex] Penicillins Allergy Severe Respiratory Verified 05/06/20 14:03 - Social History Does the pt smoke?: Yes Smoking Status: Current every day smoker Does the pt drink ETOH?: Yes Does the pt have substance abuse?: Yes - Immunizations Immunizations are current?: Yes - POLST Patient has POLST: No PD ED PE NORMAL - Vitals Vital signs reviewed: Yes - General General: Alert and oriented X 3, No acute distress, Well developed/nourished - HEENT HEENT: Pharynx benign - Neck Neck: Supple, no meningeal sign, No adenopathy - Cardiac Cardiac: RRR, No murmur - Respiratory Respiratory: No respiratory distress. No: Clear bilaterally (diffuse mild wheezing and mildly prolonged exp phase. ) - Derm Derm: Normal color, Warm and dry - Neuro Neuro: Alert and oriented X 3, No motor deficit, Normal speech Results - Vitals Vitals: Vital Signs - 24 hr 05/06/20 14:03 Temperature 36.5 C Heart Rate 93 Respiratory 16 Rate Blood Pressure 140/94 H O2 Saturation 98 Oxygen O2 Source Room air PD MEDICAL DECISION MAKING - ED course Complexity details: re-evaluated patient (I looked at Rx log for him outpatient and it did look like there was Rx called in/filled for him at [facility] on 05/03/20 for the 3 inhalers. He had not been notified that the refills were called in. I wrote Rx for him in case, but told him that the 3 inhalers were likely waiting to be picked up at [facility]. ), considered differential (he sounds like would have been okay if got timely refill of meds. Gave MDI here for symptoms presently. Will also give short steroid dosing, since sounds like some inflammatory component developed without his meds. ), d/w patient Departure - Departure Disposition: 01 Home, Self Care Clinical Impression: Mild chronic obstructive pulmonary disease Dyspnea Qualifiers: Dyspnea type: dyspnea on exertion Qualified Code(s): R06.00 - Dyspnea, unspecified Condition: Stable Record reviewed to determine appropriate education?: Yes Prescriptions: Albuterol Sulfate [Albuterol Sulfate Hfa] 2 puffs IH QID #1 hfa.aer.ad Budesonide/Formoterol Fumarate [Symbicort 80-4.5 Mcg Inhaler] 2 puffs IH DAILY #1 hfa.aer.ad dexAMETHasone [Decadron] 4 mg PO DAILY #5 tablet Fluticasone 44 Mcg [Flovent] 1 puffs INH BID #1 inhaler Comments: Continue usual inhalers. You could add Decadron oral oral steroid daily for 5 days to help as well. Recheck if not improved over the next few days. Discharge Date/Time: 05/06/20 15:26
[2020-05-06] MEDS ORDERED: CHERRY SYRUP 10 ML UDC PO ONE (14:53)
[2020-05-06] MEDS ORDERED: ALBUTEROL 1 PUFF INH STA (14:53)
[2020-05-06] MEDS ORDERED: DEXAMETHASONE 10 MG/ML VIAL PO STA (14:53)
[2020-05-06] MEDS ORDERED: BENZONATATE 100 MG CAPSULE PO STA (14:54)
== END 2020-05-06 15:26 | disposition home or self-care (01) ==
LOC: ED 13:59
DX: J44.9 Chronic obstructive pulmonary disease, unspecified (principal); F17.200 Nicotine dependence, unspecified, uncomplicated; Z76.0 Encounter for issue of repeat prescription
CPT/HCPCS: 94640; 99283; 99284; A9270

== ENCOUNTER 2021-10-02 12:28 | Outpatient (CLI) | payer MEDICAID | END 2021-10-02 12:29 | disposition critical access hospital (66) | LOC: EMS 12:28 | DX: R06.02 Shortness of breath (principal) | CPT/HCPCS: A0425; A0427; A0999 ==

== ENCOUNTER 2021-10-02 12:37 | Emergency (ER) | payer MEDICAID ==
[2021-10-02 12:51] VITALS: BP 120/83
--- NOTE | 2021-10-02 12:56 | XRAY Report ---
PROCEDURE: Chest 1 View X-Ray INDICATIONS: Chest Pain TECHNIQUE: One view of the chest was acquired. COMPARISON: 05/03/2018. FINDINGS: Surgical changes and devices: None. Lungs and pleura: No pleural effusions or pneumothorax. Lungs are clear. Mediastinum: Mediastinal contours appear normal. Heart size is normal. Bones and chest wall: Chronic right rib fractures. No suspicious bony lesions. Overlying soft tissu es appear unremarkable. IMPRESSION: No acute cardiopulmonary disease process. Reviewed by: Smitha Colorado MD, PhD on 10/02/2021 11:55 AM [facility] Approved by: Smitha Colorado MD, PhD on 10/02/2021 11:55 AM [facility] Station ID: [id number]
[2021-10-02 13:00] LABS: BASOPHILS % (AUTO) 0.7 %; EOSINOPHILS # (AUTO) 0.1 10^3/uL (0.0-0.7); EOSINOPHILS % (AUTO) 1.3 %; HCT - HEMATOCRIT 43.7 % (42.0-52.0); HGB - HEMOGLOBIN 14.8 g/dL (14.0-18.0); LYMPHOCYTES % (AUTO) 37.5 %; MEAN CORPUSCULAR HEMOGLOBIN 33.7 pg (27.0-31.0); MEAN CORPUSCULAR HGB CONC 33.9 g/dL (32.0-36.0); MEAN CORPUSCULAR VOLUME 99.5 fL (80.0-94.0); MEAN PLATELET VOLUME 9.6 fL (7.4-11.4); MONOCYTES # (AUTO) 0.6 10^3/uL (0.0-1.0); MONOCYTES % (AUTO) 10.4 %; NEUTROPHILS # (AUTO) 2.7 10^3/uL (1.5-6.6); NEUTROPHILS % (AUTO) 49.9 %; PLT - PLATELET COUNT 284 10^3/uL (130-450); RED BLOOD COUNT 4.39 10^6/uL (4.70-6.10); RED CELL DISTRIBUTION WIDTH 13.2 % (12.0-15.0); WHITE BLOOD COUNT 5.4 x10^3/uL (4.8-10.8)
[2021-10-02 13:13] LABS: ALBUMIN 4.4 g/dL (3.2-5.5); ALBUMIN/GLOBULIN RATIO 1.2 (1.0-2.2); BILIRUBIN,TOTAL 0.7 mg/dL (0.2-1.0); CREATININE 0.7 mg/dL (0.6-1.2); POTASSIUM 4.5 mmol/L (3.5-5.0); TOTAL PROTEIN 8.1 g/dL (6.7-8.2)
[2021-10-02] MEDS ORDERED: predniSONE 20 MG TABLET PO STA (13:34)
--- NOTE | 2021-10-02 13:37 | ED Physician Documentation ---
History of Present Illness - Stated complaint Stated Complaint: SOA - Chief complaint Chief Complaint: Resp - Additonal information Additional information: 56-year-old male presents emergency department with reported dyspnea. Reports himself to be a heavy tobacco user with no intention to quit. He also self- reports a history of COPD. Due to the pandemic he has been unable to establish again with a primary and has been out of his Symbicort for about 9 months. He denies any recent cough or fever. He would like his medications refilled. Patient does smell heavily of alcohol but denies any recent alcohol use. Review of Systems Constitutional: denies: Fever, Chills Eyes: reports: Reviewed and negative Ears: reports: Reviewed and negative Cardiac: denies: Chest pain / pressure, Palpitations, Pedal edema, Calf pain Respiratory: reports: Dyspnea, Cough, Wheezing. denies: Hemoptysis GI: reports: Reviewed and negative : reports: Reviewed and negative Skin: reports: Reviewed and negative PD PAST MEDICAL HISTORY - Past Medical History Cardiovascular: None Respiratory: Asthma, COPD Endocrine/Autoimmune: None GI: Hepatitis, Cirrhosis : None HEENT: Other Psych: Depression Musculoskeletal: None Derm: None - Past Surgical History Past Surgical History: Yes Ortho: Knee replacement - Present Medications Home Medications: Ambulatory Orders Medication Instructions Recorded Confirmed Albuterol Sulfate [Proair Hfa 2 puffs INH PRN PRN 05/03/18 03/25/19 Inhaler] Fluticasone 44 Mcg [Flovent] 2 puffs IH PRN PRN 05/03/18 03/25/19 Meloxicam [Mobic] 7.5 mg PO BID PRN #20 tablet 03/25/19 Omeprazole 1 tab ORAL DAILY 03/25/19 03/25/19 Albuterol Sulfate [Albuterol 2 puffs IH QID #1 hfa.aer.ad 05/06/20 Sulfate Hfa] Budesonide/Formoterol Fumarate 2 puffs IH DAILY #1 hfa.aer.ad 05/06/20 [Symbicort 80-4.5 Mcg Inhaler] Fluticasone 44 Mcg [Flovent] 1 puffs INH BID #1 inhaler 05/06/20 dexAMETHasone [Decadron] 4 mg PO DAILY #5 tablet 05/06/20 - Allergies Allergies/Adverse Reactions: Allergies Allergy/AdvReac Type Severity Reaction Status Date / Time cephalexin monohydrate * Allergy Severe Respiratory Verified 10/02/21 12:51 [From Keflex] Penicillins Allergy Severe Respiratory Verified 10/02/21 12:51 - Social History Does the pt smoke?: Yes Smoking Status: Current every day smoker Does the pt drink ETOH?: Yes Does the pt have substance abuse?: Yes - Immunizations Immunizations are current?: Yes - POLST Patient has POLST: No PD ED PE NORMAL - General General: Alert and oriented X 3, No acute distress, Well developed/nourished - HEENT HEENT: Atraumatic, Ears normal, Moist mucous membranes, Pharynx benign - Neck Neck: Supple, no meningeal sign - Cardiac Cardiac: RRR, No murmur, No gallop, Strong equal pulses - Respiratory Respiratory: No respiratory distress. No: Clear bilaterally (Generalized bilateral wheezing without tachypnea retractions or labored breathing.) - Abdomen Abdomen: Normal bowel sounds, Soft - Derm Derm: Normal color, Warm and dry, No rash - Extremities Extremities: No deformity - Neuro Neuro: Alert and oriented X 3 Results - Vitals Vitals: Vital Signs - 24 hr 10/02/21 12:47 Temperature 36.7 C Heart Rate 86 Respiratory 18 Rate Blood Pressure 120/83 H O2 Saturation 95 Oxygen O2 Source Room air - EKG (time done) 1252 Rate: Rate (enter#) (88) Rhythm: NSR [place]: Anterior hemiblock Intervals: Normal [place], Prolonged QT QRS: Normal Ischemia: Non specific changes Compare to prior EKG: Unchanged from prior EKG Computer interpretation: Agree with computer - Labs Labs: Laboratory Tests 10/02/21 10/02/21 10/02/21 12:51 12:51 12:51 WBC 5.4 RBC 4.39 L Hgb 14.8 Hct 43.7 MCV 99.5 H MCH 33.7 H MCHC 33.9 RDW 13.2 Plt Count 284 MPV 9.6 Neut # (Auto) 2.7 Lymph # (Auto) 2.0 [place] # (Auto) 0.6 Eos # (Auto) 0.1 Baso # (Auto) 0.0 Absolute Nucleated RBC 0.00 Nucleated RBC % 0.0 Sodium 140 Potassium 4.5 Chloride 105 Carbon Dioxide 24 Anion Gap 11.0 BUN 15 Creatinine 0.7 Estimated GFR (MDRD) 117 Glucose 108 H Calcium 9.0 Total Bilirubin 0.7 AST 47 H ALT 41 Alkaline Phosphatase 79 Troponin I High Sens 3.5 B-Natriuretic Peptide Total Protein 8.1 Albumin 4.4 Globulin 3.7 Albumin/Globulin Ratio 1.2 Lipase 43 10/02/21 12:51 WBC RBC Hgb Hct MCV MCH MCHC RDW Plt Count MPV Neut # (Auto) Lymph # (Auto) [place] # (Auto) Eos # (Auto) Baso # (Auto) Absolute Nucleated RBC Nucleated RBC % Sodium Potassium Chloride Carbon Dioxide Anion Gap BUN Creatinine Estimated GFR (MDRD) Glucose Calcium Total Bilirubin AST ALT Alkaline Phosphatase Troponin I High Sens B-Natriuretic Peptide 18 Total Protein Albumin Globulin Albumin/Globulin Ratio Lipase - Rads (name of study) CXR Radiology: Final report received (No acute cardiopulmonary process) PD MEDICAL DECISION MAKING - ED course Complexity details: reviewed results, considered differential, d/w patient ED course: 56-year-old male presents emergency department requesting a refill of his inhalers as well as medication to help with his dyspnea. Reports himself is a smoker with no intention to quit. He does smell heavily of alcohol. After my initial evaluation of this gentleman in fast track in which I had ordered albuterol as well as some prednisone with the intention of discharging him with an appropriate prescription for refills the patient was found to have eloped from the emergency department. He did appear clinically stable and without hypoxia at the time of my last evaluation. Departure - Departure Disposition: ED [place] Clinical Impression: Tobacco use disorder Dyspnea Qualifiers: Dyspnea type: dyspnea on exertion Qualified Code(s): R06.00 - Dyspnea, unspecified
[2021-10-02] MEDS ORDERED: ALBUTEROL 1 PUFF INH STA (13:42)
== END 2021-10-02 13:50 | disposition left against medical advice (07) ==
LOC: EDUNIT# → EDBD → ED 12:37
DX: R06.00 Dyspnea, unspecified (principal); Z72.0 Tobacco use; J44.9 Chronic obstructive pulmonary disease, unspecified
CPT/HCPCS: 36415; 71045; 80053; 83690; 83880; 84484; 85025; 93005; 99283; 99284; J7512

== ENCOUNTER 2021-10-10 16:14 | Emergency (ER) | payer MEDICAID ==
[2021-10-10 16:24] VITALS: BP 126/107
[2021-10-10] MEDS ORDERED: IPRATROPIUM 0.2 MG/ML NEB INH STA (16:31)
[2021-10-10] MEDS ORDERED: ALBUTEROL NEB 2.5 MG/3 ML INH STA (16:31)
[2021-10-10] MEDS ORDERED: predniSONE 20 MG TABLET PO STA (16:31)
--- NOTE | 2021-10-10 16:36 | ED Physician Documentation ---
History of Present Illness - Stated complaint Stated Complaint: SOA - Chief complaint Chief Complaint: Resp - Additonal information Additional information: 56-year-old male return to the emergency department for evaluation of dyspnea and labored breathing. He has a longstanding history of COPD as well as active daily tobaccoism for which she has no plans to quit. He has recently ran out of his long-acting inhaler Symbicort. I did see him for similar on 02 October. However he suddenly eloped from the ED. Patient reports to me that he did not like being told that he would need a primary care provider to manage the COPD in the long-term or in order to obtain referral to a director human services. Presentation there is no hypoxia but he is somewhat tachypneic and has some global expiratory wheeze. He reports that he called primary care clinic in [place] today and was told to present to the ER. He has yet to establish with a PCP. Review of Systems Constitutional: denies: Fever, Chills Eyes: reports: Reviewed and negative Ears: reports: Reviewed and negative Nose: reports: Reviewed and negative Throat: reports: Reviewed and negative Cardiac: reports: Reviewed and negative Respiratory: reports: Dyspnea, Cough, Wheezing. denies: Hemoptysis GI: reports: Reviewed and negative : reports: Reviewed and negative Skin: reports: Reviewed and negative PD PAST MEDICAL HISTORY - Past Medical History Cardiovascular: None Respiratory: Asthma, COPD Endocrine/Autoimmune: None GI: Hepatitis, Cirrhosis : None HEENT: Other Psych: Depression Musculoskeletal: None Derm: None - Past Surgical History Past Surgical History: Yes Ortho: Knee replacement - Present Medications Home Medications: Ambulatory Orders Medication Instructions Recorded Confirmed Albuterol Sulfate [Proair Hfa 2 puffs INH PRN PRN 05/03/18 03/25/19 Inhaler] Fluticasone 44 Mcg [Flovent] 2 puffs IH PRN PRN 05/03/18 03/25/19 Meloxicam [Mobic] 7.5 mg PO BID PRN #20 tablet 03/25/19 Omeprazole 1 tab ORAL DAILY 03/25/19 03/25/19 Albuterol Sulfate [Albuterol 2 puffs IH QID #1 hfa.aer.ad 05/06/20 Sulfate Hfa] Budesonide/Formoterol Fumarate 2 puffs IH DAILY #1 hfa.aer.ad 05/06/20 [Symbicort 80-4.5 Mcg Inhaler] Fluticasone 44 Mcg [Flovent] 1 puffs INH BID #1 inhaler 05/06/20 dexAMETHasone [Decadron] 4 mg PO DAILY #5 tablet 05/06/20 Albuterol Sulf [Ventolin Hfa 1 - 2 puffs INH Q4HR PRN #1 inhaler 10/10/21 Inhaler] Azithromycin [Zithromax] 0 mg PO DAILY #6 tablet 10/10/21 Budesonide/Formoterol Fumarate 10.2 gm IH DAILY #1 unit 10/10/21 [Symbicort 80-4.5 Mcg Inhaler] Fluticasone 44 Mcg [Flovent] 1 puffs INH BID #12 gm 10/10/21 predniSONE [Deltasone] 40 mg PO DAILY 5 Days #10 tablet 10/10/21 - Allergies Allergies/Adverse Reactions: Allergies Allergy/AdvReac Type Severity Reaction Status Date / Time cephalexin monohydrate * Allergy Severe Respiratory Verified 10/10/21 16:24 [From Keflex] Penicillins Allergy Severe Respiratory Verified 10/10/21 16:24 - Social History Does the pt smoke?: Yes Smoking Status: Current every day smoker Does the pt drink ETOH?: Yes Does the pt have substance abuse?: Yes - Immunizations Immunizations are current?: Yes - POLST Patient has POLST: No PD ED PE EXPANDED - General General: Alert, No acute distress - Neck Neck: Supple w/out meningeal sx. No: Adenopathy - Cardiac Cardiac: Regular Rate, Radial strong equal, Pedal strong equal, Cap refill < 2 sec - Respiratory Respiratory: Wheezing (global expiratory wheeze. mild tachypnea) - Abdomen Abdomen: Normal Bowel sounds. No: Tender to palpation - Back Back: Normal exam. No: CVA TTP right, CVA TTP left - Derm Derm: Normal color, Warm and dry. No: Rash - Extremities Extremities: Normal. No: Deformity, Tenderness - Neuro Neuro: Alert and Oriented X 3, CNII-XII intact - GCS Eye Opening: Spontaneous Motor: Obeys Commands Verbal: Oriented Total: 15 Results - Vitals Vitals: Vital Signs - 24 hr 10/10/21 10/10/21 16:18 16:41 Temperature 36.1 C L Heart Rate 107 H 92 Respiratory 22 20 Rate Blood Pressure 126/107 H O2 Saturation 97 Oxygen O2 Source Room air - EKG (time done) 1705 Rate: Rate (enter#) (93) Rhythm: NSR [place]: Other (LAFB) Intervals: Normal [place]. No: Prolonged QT QRS: Poor R wave progression Ischemia: Normal ST segments Compare to prior EKG: Unchanged from prior EKG Computer interpretation: Agree with computer - Rads (name of study) CXR Radiology: Final report received (no acute cardiopulmonary process) PD MEDICAL DECISION MAKING - ED course Complexity details: reviewed results, re-evaluated patient, considered differential, d/w patient ED course: 56-year-old male who has a well-known history of COPD and active tobaccoism presents to the emergency department with persistent shortness of air and cough. He has been out of his Symbicort and Flovent for many months. He also has no intention to quit tobacco use. Here in the emergency department he presents with some mild global expiratory wheeze. No hypoxia. CXR without focal opacity. He was initially mildly tachypneic in the upper 20s. He was given a DuoNeb which markedly improved his aeration and halted the wheeze and reduced respiratory rate. Patient will be started on a 5-day prednisone burst for COPD exacerbation as well as the addition of azithromycin. I have refilled his Symbicort, Flovent and albuterol. He has been dispensed a spacer. We discussed that it will be very important for him to establish with a primary care provider in the long-term for management of his COPD and refill of his medications. Emergent return precautions otherwise discussed. Departure - Departure Disposition: 01 Home, Self Care Clinical Impression: COPD exacerbation, Encounter for medication refill Condition: Stable Record reviewed to determine appropriate education?: Yes Instructions: COPD Dc Prescriptions: Albuterol Sulf [Ventolin Hfa Inhaler] 1 - 2 puffs INH Q4HR PRN #1 inhaler PRN Reason: Shortness Of Air/Wheezing predniSONE [Deltasone] 40 mg PO DAILY 5 Days #10 tablet Fluticasone 44 Mcg [Flovent] 1 puffs INH BID #12 gm Budesonide/Formoterol Fumarate [Symbicort 80-4.5 Mcg Inhaler] 10.2 gm IH DAILY #1 unit Azithromycin [Zithromax] 0 mg PO DAILY #6 tablet Comments: Evaristo rich were seen today in the emergency department for your COPD. You have be en out of your maintenance medications for quite some time. Your chest x-ray today does not show any pneumonia. You were given a breathing treatment and your wheeze improved on reexamination. In the long-term it is going to be important for you to stop smoking. I have refilled your fluticasone, Symbicort as well as albuterol. I would also like you to fill the prednisone and begin taking every day for the next 5 days. Your prescriptions have been sent to the [facility] pharmacy and can be filled tomorrow in the morning. There is very important that you continue to establish with a primary care doctor for longer-term evaluation and management of your COPD. If at any point you feel that your breathing is worsening despite taking the medications, you develop chest pain, have any fainting episodes or bloody sputum then please return immediately to the ER for a second evaluation.
[2021-10-10] MEDS ORDERED: IPRATROPIUM/ALBUTEROL 3 ML NEB INH STA (16:37)
[2021-10-10] MEDS ORDERED: ALBUTEROL 1 PUFF INH STA (17:03)
--- NOTE | 2021-10-10 17:04 | XRAY Report ---
PROCEDURE: Chest 1 View X-Ray INDICATIONS: chest pain COMMENTS: Chest pain/ Pt states SOA PRIORS: 10/02/21 TECHNIQUE: One view of the chest was acquired. COMPARISON: 10/02/2021 FINDINGS: Surgical changes and devices: None. Lungs and pleura: No pleural effusions or pneumothorax. Lungs are clear. Mediastinum: Mediastinal contours appear normal. Heart size is normal. Bones and chest wall: No suspicious bony lesions. Overlying soft tissues appear unremarkable. IMPRESSION: No acute cardiopulmonary abnormality. Reviewed by: Marcelino Arechiga on 10/10/2021 5:03 PM PST Approved by: Marcelino Arechiga on 10/10/2021 5:03 PM PST Station ID: [id number]
== END 2021-10-10 17:20 | disposition home or self-care (01) ==
LOC: ED 16:14
DX: J44.9 Chronic obstructive pulmonary disease, unspecified (principal); F17.200 Nicotine dependence, unspecified, uncomplicated; Z76.0 Encounter for issue of repeat prescription
CPT/HCPCS: 71045; 93005; 94640; 94664; 99283; 99285; J7512

== ENCOUNTER 2021-12-18 15:54 | Emergency (ER) | payer MEDICAID ==
[2021-12-18 16:00] VITALS: BP 147/97
--- NOTE | 2021-12-18 16:09 | ED Physician Documentation ---
History of Present Illness - Stated complaint Stated Complaint: SOA - Chief complaint Chief Complaint: Resp - History obtained from History obtained from: Patient - Additonal information Additional information: The patient comes to the emergency department chief complaint of "I need an inhaler prescription". The patient states that his normal inhaler prescription did not come on time, and he has run out of his inhaler home. The patient has a history of COPD and uses his inhaler on a regular basis. He states he does not feel that he needs an emergent treatment right now, but does need to have his inhaler on hand. No recent upper respiratory infection, fever, or increasing cough. Patient states that he is otherwise feeling at baseline. No other complaints at this time Review of Systems Ten Systems: 10 systems reviewed and negative Constitutional: reports: Reviewed and negative Eyes: reports: Reviewed and negative Ears: reports: Reviewed and negative Nose: reports: Reviewed and negative Throat: reports: Reviewed and negative Cardiac: reports: Reviewed and negative Respiratory: reports: Dyspnea (Chronic), Wheezing (Chronic) GI: reports: Reviewed and negative : reports: Reviewed and negative Skin: reports: Reviewed and negative Musculoskeletal: reports: Reviewed and negative Neurologic: reports: Reviewed and negative Psychiatric: reports: Reviewed and negative Endocrine: reports: Reviewed and negative Immunocompromised: reports: Reviewed and negative PD PAST MEDICAL HISTORY - Past Medical History Cardiovascular: None Respiratory: Asthma, COPD Endocrine/Autoimmune: None GI: Hepatitis, Cirrhosis : None HEENT: Other Psych: Depression Musculoskeletal: None Derm: None - Past Surgical History Past Surgical History: Yes Ortho: Knee replacement - Present Medications Home Medications: Ambulatory Orders Medication Instructions Recorded Confirmed Albuterol Sulfate [Proair Hfa 2 puffs INH PRN PRN 05/03/18 03/25/19 Inhaler] Fluticasone 44 Mcg [Flovent] 2 puffs IH PRN PRN 05/03/18 03/25/19 Meloxicam [Mobic] 7.5 mg PO BID PRN #20 tablet 03/25/19 Omeprazole 1 tab ORAL DAILY 03/25/19 03/25/19 Albuterol Sulfate [Albuterol 2 puffs IH QID #1 hfa.aer.ad 05/06/20 Sulfate Hfa] Budesonide/Formoterol Fumarate 2 puffs IH DAILY #1 hfa.aer.ad 05/06/20 [Symbicort 80-4.5 Mcg Inhaler] Fluticasone 44 Mcg [Flovent] 1 puffs INH BID #1 inhaler 05/06/20 dexAMETHasone [Decadron] 4 mg PO DAILY #5 tablet 05/06/20 Albuterol Sulf [Ventolin Hfa 1 - 2 puffs INH Q4HR PRN #1 inhaler 10/10/21 Inhaler] Azithromycin [Zithromax] 0 mg PO DAILY #6 tablet 10/10/21 Budesonide/Formoterol Fumarate 10.2 gm IH DAILY #1 unit 10/10/21 [Symbicort 80-4.5 Mcg Inhaler] Fluticasone 44 Mcg [Flovent] 1 puffs INH BID #12 gm 10/10/21 predniSONE [Deltasone] 40 mg PO DAILY 5 Days #10 tablet 10/10/21 Albuterol Sulf [Ventolin Hfa 1 - 2 puffs INH Q4HR PRN #1 inhaler 12/18/21 Inhaler] predniSONE [Deltasone] 60 mg PO DAILY 5 Days #15 tablet 12/18/21 - Allergies Allergies/Adverse Reactions: Allergies Allergy/AdvReac Type Severity Reaction Status Date / Time cephalexin monohydrate * Allergy Severe Respiratory Verified 12/18/21 16:02 [From Keflex] Penicillins Allergy Severe Respiratory Verified 12/18/21 16:02 - Social History Does the pt smoke?: Yes Smoking Status: Current every day smoker Does the pt drink ETOH?: Yes Does the pt have substance abuse?: Yes - Immunizations Immunizations are current?: Yes - POLST Patient has POLST: No PD ED PE NORMAL - Vitals Vital signs reviewed: Yes - General General: Alert and oriented X 3, No acute distress, Well developed/nourished - HEENT HEENT: Atraumatic, PERRL, EOMI, Moist mucous membranes - Neck Neck: Supple, no meningeal sign - Cardiac Cardiac: RRR, No murmur - Respiratory Respiratory: No respiratory distress, Other (Wheezing, mildly labored, but speaking in full sentences.) - Derm Derm: Normal color, Warm and dry, No rash - Extremities Extremities: No deformity, No edema - Neuro Neuro: Alert and oriented X 3 - Psych Psych: Normal mood, Normal affect Results - Vitals Vitals: Oxygen O2 Source Room air PD MEDICAL DECISION MAKING - ED course Complexity details: considered differential, d/w patient ED course: The patient was insistent that he did not need or want a treatment here and just wanted a prescription for an albuterol inhaler, which he would take right over to the pharmacy and fill. Since the patient felt he was at baseline, including the wheezing, I did go ahead and clear him for discharge. I have given him the prescription for the inhaler, and we have discussed the need to return if he begins having worsening breathing that is not helped by his inhaler. Departure - Departure Disposition: 01 Home, Self Care Clinical Impression: Moderate COPD (chronic obstructive pulmonary disease) Condition: Stable Instructions: ED COPD Flare Prescriptions: Albuterol Sulf [Ventolin Hfa Inhaler] 1 - 2 puffs INH Q4HR PRN #1 inhaler PRN Reason: Shortness Of Air/Wheezing predniSONE [Deltasone] 60 mg PO DAILY 5 Days #15 tablet Comments: Prescriptions for albuterol and prednisone [facility] in [place]. Please go pick them up as soon as you can. Discharge Date/Time: 12/18/21 16:12
== END 2021-12-18 16:12 | disposition home or self-care (01) ==
LOC: ED 15:54
DX: J44.9 Chronic obstructive pulmonary disease, unspecified (principal); F17.200 Nicotine dependence, unspecified, uncomplicated
CPT/HCPCS: 99282; 99283

== ENCOUNTER 2022-01-22 11:19 | Outpatient (CLI) | payer MEDICAID | END 2022-01-22 11:20 | disposition critical access hospital (66) | LOC: EMS 11:19 | DX: R06.02 Shortness of breath (principal) | CPT/HCPCS: A0425; A0427 ==

== ENCOUNTER 2022-01-22 11:36 | Emergency (ER) | payer MEDICAID ==
--- NOTE | 2022-01-22 11:50 | ED Physician Documentation ---
PD HPI DYSPNEA - Stated complaint Stated Complaint: SOA - History obtained from History obtained from: Patient, EMS - History of Present Illness Timing - onset: Today Timing - onset during: Light activity Timing - duration: Hours Timing - details: Abrupt onset (he had been noting some increased cough and wheeze the past 2-3 days but much worse today with light activity of washing dishes.), Still present Inciting event(s): URI (some cough and congestion, wheezing.). No: Out of meds Improved by: Rest Worsened by: Exertion, Coughing Associated symptoms: Cough, Wheezing. No: Fever, Chest pain / discomfort, Palpitations, Bilateral edema Similar symptoms before: Diagnosis (COPD) Recently seen: Not recently seen Review of Systems Constitutional: reports: Myalgias. denies: Fever, Chills Nose: reports: Rhinorrhea / runny nose, Congestion Throat: denies: Sore throat Cardiac: denies: Chest pain / pressure, Palpitations Respiratory: reports: Dyspnea, Cough, Wheezing GI: denies: Abdominal Pain, Vomiting, Diarrhea Skin: denies: Rash, Lesions Neurologic: denies: Altered mental status, Headache PD PAST MEDICAL HISTORY - Past Medical History Cardiovascular: None Respiratory: Asthma, COPD Endocrine/Autoimmune: None GI: Hepatitis, Cirrhosis : None HEENT: Other Psych: Depression Musculoskeletal: None Derm: None - Past Surgical History Past Surgical History: Yes Ortho: Knee replacement - Present Medications Home Medications: Ambulatory Orders Medication Instructions Recorded Confirmed Albuterol Sulfate [Proair Hfa 2 puffs INH PRN PRN 05/03/18 03/25/19 Inhaler] Fluticasone 44 Mcg [Flovent] 2 puffs IH PRN PRN 05/03/18 03/25/19 Meloxicam [Mobic] 7.5 mg PO BID PRN #20 tablet 03/25/19 Omeprazole 1 tab ORAL DAILY 03/25/19 03/25/19 Albuterol Sulfate [Albuterol 2 puffs IH QID #1 hfa.aer.ad 05/06/20 Sulfate Hfa] Budesonide/Formoterol Fumarate 2 puffs IH DAILY #1 hfa.aer.ad 05/06/20 [Symbicort 80-4.5 Mcg Inhaler] Fluticasone 44 Mcg [Flovent] 1 puffs INH BID #1 inhaler 06/08/20 dexAMETHasone [Decadron] 4 mg PO DAILY #5 tablet 05/06/20 Albuterol Sulf [Ventolin Hfa 1 - 2 puffs INH Q4HR PRN #1 inhaler 10/10/21 Inhaler] Azithromycin [Zithromax] 0 mg PO DAILY #6 tablet 10/10/21 Budesonide/Formoterol Fumarate 10.2 gm IH DAILY #1 unit 10/10/21 [Symbicort 80-4.5 Mcg Inhaler] Fluticasone 44 Mcg [Flovent] 1 puffs INH BID #12 gm 10/10/21 predniSONE [Deltasone] 40 mg PO DAILY 5 Days #10 tablet 10/10/21 Albuterol Sulf [Ventolin Hfa 1 - 2 puffs INH Q4HR PRN #1 inhaler 12/18/21 Inhaler] predniSONE [Deltasone] 60 mg PO DAILY 5 Days #15 tablet 12/18/21 Doxycycline Hyclate 100 mg PO BID 7 Days #14 cap 01/22/22 dexAMETHasone [Decadron] 4 mg PO DAILY #7 tablet 01/22/22 - Allergies Allergies/Adverse Reactions: Allergies Allergy/AdvReac Type Severity Reaction Status Date / Time cephalexin monohydrate * Allergy Severe Respiratory Verified 12/18/21 16:02 [From Keflex] Penicillins Allergy Severe Respiratory Verified 12/18/21 16:02 - Living Situation Living Situation: reports: Alone Living Arrangement: reports: At home - Social History Does the pt smoke?: Yes Smoking Status: Current every day smoker Does the pt drink ETOH?: Yes Does the pt have substance abuse?: Yes Substance Use and Type: Marijuana - Immunizations Immunizations are current?: Yes - POLST Patient has POLST: No PD ED PE NORMAL - Vitals Vital signs reviewed: Yes - General General: Alert and oriented X 3, No acute distress (he says nebs enroute did improve breathing moderately. ), Well developed/nourished - HEENT HEENT: Moist mucous membranes, Pharynx benign - Neck Neck: Supple, no meningeal sign, No adenopathy - Cardiac Cardiac: RRR, No murmur - Respiratory Respiratory: No: Clear bilaterally (no coarse sounds but does have diffuse moderate wheezing. ABle to talk sentences. SItting semi-reclined. ) - Abdomen Abdomen: Soft, Non tender - Back Back: No CVA TTP - Derm Derm: Normal color, Warm and dry - Extremities Extremities: Normal ROM s pain, No edema, No calf tenderness / cord - Neuro Neuro: Alert and oriented X 3, No motor deficit, Normal speech Results - Vitals Vitals: Vital Signs - 24 hr 01/22/22 01/22/22 11:50 12:58 Temperature 7.9 C L Heart Rate 92 92 Respiratory 20 16 Rate Blood Pressure 129/85 H O2 Saturation 97 Oxygen O2 Source Room air - Labs Labs: Laboratory Tests 01/22/22 01/22/22 01/22/22 12:47 12:47 12:47 WBC 5.9 RBC 4.20 L Hgb 14.1 Hct 41.8 L MCV 99.5 H MCH 33.6 H MCHC 33.7 RDW 14.0 Plt Count 148 MPV 9.9 Neut # (Auto) 3.5 Lymph # (Auto) 1.7 [place] # (Auto) 0.7 Eos # (Auto) 0.0 Baso # (Auto) 0.0 Absolute Nucleated RBC 0.00 Nucleated RBC % 0.0 Sodium 138 Potassium 3.8 Chloride 108 Carbon Dioxide 22 Anion Gap 8.0 BUN 10 Creatinine 0.7 Estimated GFR (MDRD) 117 Glucose 98 Calcium 8.4 L Magnesium 2.2 Total Bilirubin 0.4 AST 90 H ALT 81 H Alkaline Phosphatase 62 B-Natriuretic Peptide 31 Total Protein 7.7 Albumin 4.3 Globulin 3.4 Albumin/Globulin Ratio 1.3 Lipase 58 H - Rads (name of study) chest xray Radiology: Prelim report reviewed (no infiltrates), See rad report PD MEDICAL DECISION MAKING - ED course Complexity details: reviewed results, considered differential, d/w patient Departure - Departure Disposition: 01 Home, Self Care Clinical Impression: Acute exacerbation of COPD with asthma Condition: Stable Record reviewed to determine appropriate education?: Yes Instructions: ED COPD Flare Prescriptions: dexAMETHasone [Decadron] 4 mg PO DAILY #7 tablet Doxycycline Hyclate 100 mg PO BID 7 Days #14 cap Comments: Your chest x-ray does not show any signs of pneumonia. Your breathing does seem better now. Continue with your usual inhalers and the albuterol inhaler as well. Add Decadron steroid daily for the next week. Also for concern of some bacterial component I would have you add doxycycline twice daily for a week as well. Your Covid test should result in a day or 2. Recheck if not improving well over the next couple of days and return sooner if worse again. I transmitted your prescription to [facility] pharmacy. Discharge Date/Time: 01/22/22 14:31
[2022-01-22 12:12] VITALS: BP 129/85
[2022-01-22] MEDS ORDERED: IPRATROPIUM/ALBUTEROL 3 ML NEB INH STA (12:31)
[2022-01-22] MEDS ORDERED: DEXAMETHASONE 10 MG/ML VIAL IVP STA (12:31)
[2022-01-22 12:53] LABS: BASOPHILS % (AUTO) 0.2 %; EOSINOPHILS % (AUTO) 0.5 %; HCT - HEMATOCRIT 41.8 % (42.0-52.0); HGB - HEMOGLOBIN 14.1 g/dL (14.0-18.0); LYMPHOCYTES # (AUTO) 1.7 10^3/uL (1.5-3.5); LYMPHOCYTES % (AUTO) 28.9 %; MEAN CORPUSCULAR HEMOGLOBIN 33.6 pg (27.0-31.0); MEAN CORPUSCULAR HGB CONC 33.7 g/dL (32.0-36.0); MEAN CORPUSCULAR VOLUME 99.5 fL (80.0-94.0); MEAN PLATELET VOLUME 9.9 fL (7.4-11.4); MONOCYTES # (AUTO) 0.7 10^3/uL (0.0-1.0); MONOCYTES % (AUTO) 11.7 %; NEUTROPHILS # (AUTO) 3.5 10^3/uL (1.5-6.6); NEUTROPHILS % (AUTO) 58.4 %; PLT - PLATELET COUNT 148 10^3/uL (130-450); WHITE BLOOD COUNT 5.9 x10^3/uL (4.8-10.8)
[2022-01-22 13:08] LABS: ALBUMIN 4.3 g/dL (3.2-5.5); ALBUMIN/GLOBULIN RATIO 1.3 (1.0-2.2); BILIRUBIN,TOTAL 0.4 mg/dL (0.2-1.0); CALCIUM 8.4 mg/dL (8.5-10.3); CREATININE 0.7 mg/dL (0.6-1.2); MAGNESIUM 2.2 mg/dL (1.7-2.8); POTASSIUM 3.8 mmol/L (3.5-5.0); TOTAL PROTEIN 7.7 g/dL (6.7-8.2)
--- NOTE | 2022-01-22 13:19 | XRAY Report ---
PROCEDURE: Chest 1 View X-Ray INDICATIONS: Chest Pain TECHNIQUE: One view of the chest was acquired. COMPARISON: 10/10/2021 FINDINGS: Surgical changes and devices: None. Lungs and pleura: No pleural effusions or pneumothorax. Lungs are clear. Mediastinum: Mediastinal contours appear normal. Heart size is normal. Bones and chest wall: No suspicious bony lesions. Overlying soft tissues appear unremarkable. IMPRESSION: No acute cardiopulmonary findings Reviewed by: Gonzalo Gleason MD on 01/22/2022 12:18 PM [facility] Approved by: Gonzalo Gleason MD on 01/22/2022 12:18 PM [place] Station ID: [id number]
== END 2022-01-22 14:31 | disposition home or self-care (01) ==
LOC: EDSEX → EDUNIT# → ED 11:36
DX: J44.1 Chronic obstructive pulmonary disease with (acute) exacerbation (principal); F17.200 Nicotine dependence, unspecified, uncomplicated
CPT/HCPCS: 36415; 80053; 83690; 83735; 83880; 85025; 93005; 94640; 94664; 96374; 99284

== ENCOUNTER 2022-04-01 12:47 | Outpatient (CLI) | payer MEDICAID ==
--- NOTE | 2022-04-01 17:04 | XRAY Report ---
PROCEDURE: Shoulder 3 View RT INDICATIONS: R SHOULDER IMPINGEMENT SYNDROME TECHNIQUE: 3 views of the shoulder were acquired. COMPARISON: None. FINDINGS: Bones: No fractures or dislocations. No suspicious bony lesions. Visualized ribs appear intact. M oderate right acromioclavicular joint osteoarthritic degenerative changes. Mild right glenohumeral tianna int osteoarthritic degenerative change. Soft tissues: No suspicious soft tissue calcifications. IMPRESSION: Moderate acromioclavicular joint and mild glenohumeral joint osteoarthritis. Reviewed by: Smitha Colorado MD, PhD on 04/01/2022 5:03 PM PDT Approved by: Smitha Colorado MD, PhD on 04/01/2022 5:03 PM PDT Station ID: [id number]
== END 2022-04-01 12:48 | disposition home or self-care (01) ==
LOC: DI.N 12:47
PROVIDERS: ATTEND Physician Assistant Medical
DX: M19.011 Primary osteoarthritis, right shoulder (principal)

== ENCOUNTER 2022-09-16 13:32 | Outpatient (CLI) | payer MEDICAID ==
[2022-09-16 13:45] LABS: BASOPHILS % (AUTO) 0.6 %; EOSINOPHILS # (AUTO) 0.2 10^3/uL (0.0-0.7); EOSINOPHILS % (AUTO) 3.1 %; HCT - HEMATOCRIT 46.5 % (42.0-52.0); HGB - HEMOGLOBIN 15.3 g/dL (14.0-18.0); LYMPHOCYTES # (AUTO) 1.8 10^3/uL (1.5-3.5); LYMPHOCYTES % (AUTO) 26.8 %; MEAN CORPUSCULAR HEMOGLOBIN 33.7 pg (27.0-31.0); MEAN CORPUSCULAR HGB CONC 32.9 g/dL (32.0-36.0); MEAN CORPUSCULAR VOLUME 102.4 fL (80.0-94.0); MEAN PLATELET VOLUME 9.8 fL (7.4-11.4); MONOCYTES # (AUTO) 0.7 10^3/uL (0.0-1.0); MONOCYTES % (AUTO) 10.6 %; NEUTROPHILS # (AUTO) 3.9 10^3/uL (1.5-6.6); NEUTROPHILS % (AUTO) 58.6 %; PLT - PLATELET COUNT 240 10^3/uL (130-450); RED BLOOD COUNT 4.54 10^6/uL (4.70-6.10); RED CELL DISTRIBUTION WIDTH 14.8 % (12.0-15.0); WHITE BLOOD COUNT 6.7 x10^3/uL (4.8-10.8)
[2022-09-16 13:52] LABS: PT - PROTHROMBIN TIME 10.8 secs (9.9-12.6)
[2022-09-16 14:03] LABS: ALBUMIN 4.8 g/dL (3.2-5.5); ALBUMIN/GLOBULIN RATIO 1.4 (1.0-2.2); BILIRUBIN,TOTAL 0.6 mg/dL (0.2-1.0); CALCIUM 9.7 mg/dL (8.5-10.3); CREATININE 0.9 mg/dL (0.6-1.2); POTASSIUM 4.5 mmol/L (3.5-5.0); TOTAL PROTEIN 8.3 g/dL (6.7-8.2)
[2022-09-19 16:08] LABS: HBsAG SCREEN Negative (Negative); HCV AB >11.0 s/co ratio (0.0-0.9); HCV IU/ML 2330000 IU/mL (.); HCV IU/ML 2680000 IU/mL (.); HCV LOG10 6.367 (.); HCV LOG10 6.428 (.); HEPATITIS B CORE IGM AB Negative (Negative)
== END 2022-09-16 13:33 | disposition home or self-care (01) ==
LOC: LAB 13:32
PROVIDERS: ATTEND Physician Assistant
DX: B18.2 Chronic viral hepatitis C (principal)
CPT/HCPCS: 36415; 80053; 82105; 85025; 85610; 86705; 86709; 86803; 87340; 87522

== ENCOUNTER 2022-12-16 22:28 | Emergency (ER) | payer MEDICAID ==
[2022-12-16] MEDS ORDERED: IPRATROPIUM/ALBUTEROL 3 ML NEB INH STA (22:33)
[2022-12-16] MEDS ORDERED: DEXAMETHASONE 10 MG/ML VIAL PO STA (23:01)
[2022-12-16] MEDS ORDERED: CHERRY SYRUP 10 ML UDC PO ONE (23:01)
--- NOTE | 2022-12-16 23:05 | ED Physician Documentation ---
History of Present Illness - Stated complaint Stated Complaint: SOA/COUGH - Chief complaint Chief Complaint: Resp - History obtained from History obtained from: Patient, EMS - Additonal information Additional information: 57-year-old man with past medical history of Heavy alcohol and cigarette use, emphysema, hep C, presents with shortness of breath and wheezing occurring suddenly around 8 PM at rest. Patient uses daily maintenance Spiriva and Symbicort inhalers but ran out of his albuterol about a month ago. He called EMS and Upon arrival they report he had O2 sat 96% on room air. He was provided with an nebulized albuterol treatment with Subjective improvement.Denies fever, hemoptysis, chest pain, nausea. Review of Systems Constitutional: denies: Fever, Chills Respiratory: reports: Dyspnea, Cough (productive of grewal sputum), Wheezing. denies: Hemoptysis PD PAST MEDICAL HISTORY - Past Medical History Cardiovascular: None Respiratory: Asthma, COPD Endocrine/Autoimmune: None GI: Hepatitis, Cirrhosis : None HEENT: Other Psych: Depression Musculoskeletal: None Derm: None - Past Surgical History Past Surgical History: Yes Ortho: Knee replacement - Present Medications Home Medications: Ambulatory Orders Medication Instructions Recorded Confirmed Albuterol Sulfate [Proair Hfa 2 puffs INH PRN PRN 05/03/18 12/16/22 Inhaler] Meloxicam [Mobic] 7.5 mg PO BID PRN #20 tablet 03/25/19 12/16/22 Omeprazole 1 tab ORAL DAILY 03/25/19 12/16/22 Budesonide/Formoterol Fumarate 10.2 gm IH DAILY #1 unit 10/10/21 12/16/22 [Symbicort 80-4.5 Mcg Inhaler] Albuterol Sulf [Ventolin Hfa 1 - 2 puffs INH Q4HR PRN #18 gm 12/16/22 Inhaler] Tiotropium [place] [Spiriva 18 mcg INH DAILY 12/16/22 12/16/22 Handihaler] predniSONE [Prednisone 21-TAB dose 60 mg PO QDAC 6 Days #21 tab 12/16/22 pack] - Allergies Allergies/Adverse Reactions: Allergies Allergy/AdvReac Type Severity Reaction Status Date / Time cephalexin monohydrate * Allergy Severe Respiratory Verified 12/18/21 16:02 [From Keflex] Penicillins Allergy Severe Respiratory Verified 12/18/21 16:02 - Social History Does the pt smoke?: Yes Smoking Status: Current every day smoker Does the pt drink ETOH?: Yes Does the pt have substance abuse?: Yes - Immunizations Immunizations are current?: Yes - POLST Patient has POLST: No PD ED PE NORMAL - Vitals Vital signs reviewed: Yes - General General: Alert and oriented X 3, No acute distress, Well developed/nourished - HEENT HEENT: Atraumatic, PERRL, EOMI - Cardiac Cardiac: RRR - Respiratory Respiratory: Other (coarse bilateral breath sounds with end expiratory wheezing) Results - Vitals Vitals: Vital Signs - 24 hr 12/16/22 12/16/22 22:50 22:54 Temperature 36.7 C Heart Rate 107 H 104 H Respiratory 22 22 Rate Blood Pressure 133/90 H O2 Saturation 92 92 Oxygen O2 Source Room air PD Medical Decision Making - ED course Complexity details: reviewed old records, reviewed results, considered differential, d/w patient, other (d/w EMS) Social Determinants of Health: heavy smoker, history alcohol ED course: 57-year-old man presents with acute COPD exacerbation, likely related to cigarette use given that he smelled strongly of cigarettes. Received total of 3 nebs with improvement in air flow and subjective improvement. Advised smoking cessation, Provided prescription for albuterol inhaler, provided steroids. Chest x-ray without evidence of cardiopulmonary disease. Plan to follow-up with primary care provider. return precautions given. Departure - Departure Clinical Impression: COPD exacerbation Condition: Good Instructions: ED COPD Flare Prescriptions: Albuterol Sulf [Ventolin Hfa Inhaler] 1 - 2 puffs INH Q4HR PRN #18 gm PRN Reason: Shortness Of Air/Wheezing predniSONE [Prednisone 21-TAB dose pack] 60 mg PO QDAC 6 Days #21 tab Comments: You were seen in the emergency department for shortness of breath caused by COPD.You need to cut back on cigarette use and ideally stop smoking. A prescription for albuterol and steroids was sent to [facility] in [place] electronically. Please follow-up with your primary care provider and return to the emergency department if you have new or worsening symptoms or other concerns.
[2022-12-16] MEDS ORDERED: ALBUTEROL NEB 2.5 MG/3 ML INH STA (23:09)
[2022-12-16 23:30] LABS: B. PARAPERTUSSIS- RESP PCR PAN NOT DETECTED; B. PERTUSSIS- RESP PCR PANEL NOT DETECTED; C. PNEUMONIAE- RESP PCR PANEL NOT DETECTED; CORONAVIRUS 229E-RESP PCR NOT DETECTED; CORONAVIRUS HKU1-RESP PCR NOT DETECTED; CORONAVIRUS NL63-RESP PCR NOT DETECTED; CORONAVIRUS OC43-RESP PCR NOT DETECTED; HUMAN METAPNEUMOVIRUS NOT DETECTED; INFLUENZA A- RESP PCR PANEL NOT DETECTED; INFLUENZA B - RESP PCR PANEL NOT DETECTED; M. PNEUMONIAE- RESP PCR PANEL NOT DETECTED; PARAINFLUENZA VIRUS 1 NOT DETECTED; PARAINFLUENZA VIRUS 2 NOT DETECTED; PARAINFLUENZA VIRUS 3 NOT DETECTED; PARAINFLUENZA VIRUS 4 NOT DETECTED; RHINOVIRUS/ENTEROVIRUS NOT DETECTED; RSV- RESP PCR PANEL NOT DETECTED; SARS-CoV-2 -RESP PCR PANEL NOT DETECTED
--- NOTE | 2022-12-16 23:54 | XRAY Report ---
PROCEDURE: Chest 2 View X-Ray INDICATIONS: soa, cough grewal sputum TECHNIQUE: 2 views of the chest were acquired. COMPARISON: Chest x-ray 01/22/2022 FINDINGS: Surgical changes and devices: None. Lungs and pleura: No pleural effusions or pneumothorax. Lungs are clear. Mediastinum: Mediastinal contours are normal. Heart size is normal. Bones and chest wall: No suspicious bony abnormalities. Soft tissues appear unremarkable. IMPRESSION: 1. No acute cardiopulmonary disease. Reviewed by: Khai Stringer MD on 12/17/2022 12:03 AM PST Approved by: Khai Stringer MD on 12/17/2022 12:03 AM [facility] Station ID: [id number]
[2022-12-17 00:43] VITALS: BP 115/78
== END 2022-12-17 00:42 | disposition home or self-care (01) ==
LOC: EDUNIT# → ED 22:28
DX: J44.1 Chronic obstructive pulmonary disease with (acute) exacerbation (principal); F17.200 Nicotine dependence, unspecified, uncomplicated; Z20.822 Contact with and (suspected) exposure to COVID-19
CPT/HCPCS: 71046; 87633; 94640; 99284; A9270

== ENCOUNTER 2023-02-08 10:12 | Outpatient (CLI) | payer MEDICAID ==
[2023-02-08 12:59] LABS: BASOPHILS % (AUTO) 0.6 %; EOSINOPHILS # (AUTO) 0.2 10^3/uL (0.0-0.7); EOSINOPHILS % (AUTO) 3.1 %; HCT - HEMATOCRIT 43.8 % (42.0-52.0); HGB - HEMOGLOBIN 14.2 g/dL (14.0-18.0); LYMPHOCYTES # (AUTO) 2.5 10^3/uL (1.5-3.5); LYMPHOCYTES % (AUTO) 45.6 %; MEAN CORPUSCULAR HEMOGLOBIN 32.5 pg (27.0-31.0); MEAN CORPUSCULAR HGB CONC 32.4 g/dL (32.0-36.0); MEAN CORPUSCULAR VOLUME 100.2 fL (80.0-94.0); MONOCYTES # (AUTO) 0.6 10^3/uL (0.0-1.0); MONOCYTES % (AUTO) 11.1 %; NEUTROPHILS # (AUTO) 2.1 10^3/uL (1.5-6.6); NEUTROPHILS % (AUTO) 39.4 %; PLT - PLATELET COUNT 228 10^3/uL (130-450); RED BLOOD COUNT 4.37 10^6/uL (4.70-6.10); RED CELL DISTRIBUTION WIDTH 14.4 % (12.0-15.0); WHITE BLOOD COUNT 5.4 x10^3/uL (4.8-10.8)
[2023-02-08 13:35] LABS: ALBUMIN/GLOBULIN RATIO 1.1 (1.0-2.2); ALKALINE PHOSPHATASE 70 IU/L (42-121); ALT ALANINE AMINOTRANSFERASE 16 IU/L (10-60); AST ASPARTATE AMINOTRANSFERASE 23 IU/L (10-42); BILIRUBIN,TOTAL 0.4 mg/dL (0.2-1.0); BUN - BLOOD UREA NITROGEN 9 mg/dL (6-20); CALCIUM 8.8 mg/dL (8.5-10.3); CARBON DIOXIDE - CO2 24 mmol/L (21-32); CHLORIDE 107 mmol/L (101-111); CHOLESTEROL 230 mg/dL; CREATININE 0.7 mg/dL (0.6-1.2); GFR - MDRD 117 (>89); GLUCOSE 105 mg/dL (70-100); HDL CHOLESTEROL 57 mg/dL; LDL CHOLESTEROL,CALCULATED 133 mg/dL; LDL/HDL RATIO 2.3 (<3.6); POTASSIUM 4.2 mmol/L (3.5-5.0); SODIUM 139 mmol/L (135-145); TOTAL PROTEIN 7.5 g/dL (6.7-8.2); TRIGLYCERIDES 201 mg/dL; VLDL CHOLESTEROL 40 mg/dL
[2023-02-08 16:19] LABS: THYROID STIMULATING HORMONE 1.62 uIU/mL (0.34-5.60)
== END 2023-02-08 10:13 | disposition home or self-care (01) ==
LOC: LAB.N 10:12
PROVIDERS: ATTEND Physician Assistant Medical
DX: Z00.00 Encounter for general adult medical examination without abnormal findings (principal); Z12.5 Encounter for screening for malignant neoplasm of prostate
CPT/HCPCS: 36415; 80053; 80061; 83721; 84153; 84443; 85025

== ENCOUNTER 2023-02-08 12:54 | Outpatient (CLI) | payer MEDICAID | END 2023-02-08 23:59 | disposition critical access hospital (66) | LOC: EMS 12:54 | DX: R55 Syncope and collapse (principal); R05.9 Cough, unspecified; R51.9 Headache, unspecified; S01.01XA Laceration without foreign body of scalp, initial encounter; W18.39XA Other fall on same level, initial encounter; Y92.009 Unspecified place in unspecified non-institutional (private) residence as the place of occurrence of the external cause | CPT/HCPCS: A0425; A0429; A0999 ==

== ENCOUNTER 2023-02-08 13:14 | Emergency (ER) | payer MEDICAID ==
[2023-02-08] MEDS ORDERED: LIDOCAINE 1%-EPI 1:100000 20 ML MDV SUBQ STA (13:25)
--- NOTE | 2023-02-08 13:26 | ED Physician Documentation ---
PD HPI HEAD INJURY - Stated complaint Stated Complaint: GLF/HEAD INJURY - Chief complaint Chief Complaint: Trauma Hd/Nk - History obtained from History obtained from: Patient - Additional information Additional information: 57-year-old gentleman who is a heavy smoker and not quite as heavy of a drinker as he used to be was having a coughing fit today and blacked out during the coughing fit hitting the back of his head and hurting his left jaw. Both are severe but declines pain medication. No other injuries. He has a wound on the back of his occiput. PD PAST MEDICAL HISTORY - Past Medical History Cardiovascular: None Respiratory: Asthma, COPD Neuro: None Endocrine/Autoimmune: None GI: Hepatitis, Cirrhosis : None HEENT: Other Psych: Depression Musculoskeletal: None Derm: None - Past Surgical History Past Surgical History: Yes Ortho: Knee replacement - Present Medications Home Medications: Ambulatory Orders Medication Instructions Recorded Confirmed Albuterol Sulfate [Proair Hfa 2 puffs INH PRN PRN 05/03/18 12/16/22 Inhaler] Meloxicam [Mobic] 7.5 mg PO BID PRN #20 tablet 03/25/19 12/16/22 Omeprazole 1 tab ORAL DAILY 03/25/19 12/16/22 Budesonide/Formoterol Fumarate 10.2 gm IH DAILY #1 unit 10/10/21 12/16/22 [Symbicort 80-4.5 Mcg Inhaler] Albuterol Sulf [Ventolin Hfa 1 - 2 puffs INH Q4HR PRN #18 gm 12/16/22 Inhaler] Tiotropium [place] [Spiriva 18 mcg INH DAILY 12/16/22 12/16/22 Handihaler] predniSONE [Prednisone 21-TAB dose 60 mg PO QDAC 6 Days #21 tab 12/16/22 pack] - Allergies Allergies/Adverse Reactions: Allergies Allergy/AdvReac Type Severity Reaction Status Date / Time cephalexin monohydrate * Allergy Severe Respiratory Verified 12/18/21 16:02 [From Keflex] Penicillins Allergy Severe Respiratory Verified 12/18/21 16:02 - Social History Does the pt smoke?: Yes Smoking Status: Current every day smoker Does the pt drink ETOH?: Yes Does the pt have substance abuse?: Yes - Immunizations Immunizations are current?: Yes - POLST Patient has POLST: No PD ED PE NORMAL - Vitals Vital signs reviewed: Yes - General General: Alert and oriented X 3, No acute distress - HEENT HEENT: PERRL, EOMI, Other (There is a 2 cm curved laceration right on the back of the occiput. He is tender over the left jaw with limited range of motion.) - Neck Neck: Supple, no meningeal sign, No bony TTP - Neuro Neuro: Alert and oriented X 3, Normal speech Eye Opening: Spontaneous Motor: Obeys Commands Verbal: Oriented GCS Score: 15 Results - Vitals Vitals: Vital Signs - 24 hr 02/08/23 13:21 Temperature 36.9 C Heart Rate 99 Respiratory 22 Rate Blood Pressure 169/88 H O2 Saturation 97 Oxygen O2 Source Room air - EKG (time done) 1347 EKG releavant findings:: EKG personally interpreted by author of this note. Relevant findings are: Rate: Rate (enter#) (103) Rhythm: Sinus tachycardia Intervals: Other (lafb) QRS: Normal Ischemia: Non specific changes. No: ST elevation c/w ischemia, ST depression Procedures - Laceration (location) Occiput Length in cm: 2 Wound type: Curved, Superficial Wound preparation: Irrigated copiously NS Skin layer closure: Ernie (2 ernie) Other: Patient tolerated well, No complications, Neurovascular intact, Tetanus UTD PD Medical Decision Making - ED course ED course: 57-year-old gentleman presents after head injury. He had a syncopal episode during a coughing fit. I recommended CT scanning of the head, neck, and jaw. On reevaluation his jaw was feeling much better and he declined advanced imaging preferring to return if worse. He is cogent and not intoxicated. Departure - Departure Disposition: 01 Home, Self Care Clinical Impression: Head injury Qualifiers: Encounter type: initial encounter Qualified Code(s): S09.90XA - Unspecified injury of head, initial encounter Scalp laceration Qualifiers: Encounter type: initial encounter Qualified Code(s): S01.01XA - Laceration without foreign body of scalp, initial encounter Condition: Stable Record reviewed to determine appropriate education?: Yes Instructions: ED Laceration Scalp Stitch Or Stap Comments: You were seen today for a head injury. It was closed with ernie. Your jaw was hurting but now better. I have recommended CT scanning which you have declined preferring to go home. Please return if worse. Follow-up with your primary care physician, next billable appointment. Fine to wash your head with soap and water/shampoo Follow-up at the walk-in clinic for staple removal in approximately a week to 10 days.
[2023-02-08 14:00] VITALS: BP 127/90
== END 2023-02-08 14:07 | disposition home or self-care (01) ==
LOC: EDUNIT# → EDBD → ED 13:14
DX: S09.93XA Unspecified injury of face, initial encounter (principal); S09.90XA Unspecified injury of head, initial encounter; S01.01XA Laceration without foreign body of scalp, initial encounter; W22.8XXA Striking against or struck by other objects, initial encounter; Y93.89 Activity, other specified; F17.200 Nicotine dependence, unspecified, uncomplicated; Z00.00 Encounter for general adult medical examination without abnormal findings; Z12.5 Encounter for screening for malignant neoplasm of prostate
CPT/HCPCS: 12001; 36415; 80053; 80061; 83721; 84153; 84443; 85025; 93005; 99283

== ENCOUNTER 2023-03-03 09:28 | Outpatient (CLI) | payer MEDICAID ==
--- NOTE | 2023-03-03 11:10 | XRAY Report ---
PROCEDURE: Knee 3 View LT INDICATIONS: KNEE PAIN TECHNIQUE: 3 views of the left knee(s) were acquired. COMPARISON: X-ray knee 07/24/2013 FINDINGS: Bones: No fractures or dislocations. No suspicious bony lesions. There is moderate to severe medi al as well as mild to moderate patellofemoral compartment narrowing. Minimal lateral compartment narr owing is present. Progression is most notable in the medial compartment. No erosions. Soft tissues: Minimal effusion. No suspicious soft tissue calcifications or masses. Chondrocalcino sis is present. IMPRESSION: Tricompartmental arthritic change with progression most severe medially. Reviewed by: Lisa Gordon MD on 03/03/2023 11:09 AM PDT Approved by: Lisa Gordon MD on 03/03/2023 11:09 AM PDT Station ID: [id number]
== END 2023-03-03 09:29 | disposition home or self-care (01) ==
LOC: DI 09:28
PROVIDERS: ATTEND Physician Assistant Medical
DX: M17.12 Unilateral primary osteoarthritis, left knee (principal)

== ENCOUNTER 2023-09-27 12:32 | Outpatient (CLI) | payer MEDICAID ==
[2023-09-30 14:08] LABS: HCV RNA QUANTITATION HCV Not Detected IU/mL (.)
== END 2023-09-27 12:33 | disposition home or self-care (01) ==
LOC: LAB 12:32
PROVIDERS: ATTEND Physician Assistant
DX: B18.2 Chronic viral hepatitis C (principal)
CPT/HCPCS: 36415; 87522

== ENCOUNTER 2023-09-27 12:33 | Outpatient (CLI) | payer MEDICAID ==
[2023-09-27] MEDS ORDERED: iohexoL-300 100 ML VIAL IVP ONE (14:50)
--- NOTE | 2023-09-27 18:13 | CT Report ---
PROCEDURE: CHEST W INDICATIONS: COPD CONTRAST: 100ml omni 300 TECHNIQUE: After the administration of intravenous contrast, 1 mm axial images were acquired from the pulmonary apices through the posterior costophrenic angles. Axial 5 mm soft tissue kernel reconstructions were performed as well as 8 mm axial MIP and coronal and sagittal 5 mm reformations. For radiation dose reduction, the following was used: automated exposure control, adjustment of mA and/or kV according to patient size. COMPARISON: Chest radiograph dated 12/16/[address] abdomen/pelvis dated 03/25/2019 FINDINGS: Image quality: Excellent. Lungs and pleura: No consolidation. No pleural effusions. No pneumothorax. No suspicious pulmonary n odules which require follow up. Minimal upper lobe predominant pulmonary emphysematous changes. No se ptal thickening or nodularity. Mediastinum: Heart size is normal. No pericardial effusion. No large vessel abnormality. No mediastin al adenopathy by size criteria. Chest wall and lower neck: Thyroid is unremarkable. No axillary or supraclavicular adenopathy by size . Bones: No aggressive osseous abnormality. No acute compression fractures. Mild multilevel spondylosis of the imaged spine. Upper Abdomen: Hepatic steatosis. Stable right hepatic dome hypodensity likely representing a cyst. IMPRESSION: CT chest without acute cardiopulmonary abnormalities. Minimal upper lobe predominant pulmonary emphys ematous changes. No suspicious pulmonary nodules or mass lesions. No focal airspace disease identifie d. Other chronic findings as above. Reviewed by: Hunter Maynard MD on 09/27/2023 6:12 PM PDT Approved by: Hunter Maynard MD on 09/27/2023 6:12 PM PDT Station ID: [id number]
== END 2023-09-27 12:34 | disposition home or self-care (01) ==
LOC: DI 12:33
PROVIDERS: ATTEND Physician Assistant Medical
DX: J44.9 Chronic obstructive pulmonary disease, unspecified (principal); J43.9 Emphysema, unspecified; B18.2 Chronic viral hepatitis C
CPT/HCPCS: 36415; 71260; 87522; Q9967

== ENCOUNTER 2023-09-30 12:31 | Outpatient (CLI) | payer MEDICAID ==
[2023-09-30] MEDS ORDERED: ALBUTEROL 1 PUFF INH STA (15:26)
== END 2023-09-30 12:32 | disposition home or self-care (01) ==
LOC: RT 12:31
PROVIDERS: ATTEND Physician Assistant Medical
DX: J44.9 Chronic obstructive pulmonary disease, unspecified (principal)
CPT/HCPCS: 94060

== ENCOUNTER 2023-12-07 16:37 | Outpatient (CLI) | payer MEDICAID | END 2023-12-07 23:59 | disposition critical access hospital (66) | LOC: EMS 16:37 | DX: S01.01XA Laceration without foreign body of scalp, initial encounter (principal); R51.9 Headache, unspecified; W18.30XA Fall on same level, unspecified, initial encounter; Y92.039 Unspecified place in apartment as the place of occurrence of the external cause; F10.90 Alcohol use, unspecified, uncomplicated | CPT/HCPCS: A0425; A0429; A0999 ==

== ENCOUNTER 2023-12-07 16:58 | Emergency (ER) | payer MEDICAID ==
--- NOTE | 2023-12-07 17:10 | ED Physician Documentation ---
PD HPI HEAD INJURY - Stated complaint Stated Complaint: GLF - Chief complaint Chief Complaint: Laceration - History obtained from History obtained from: Patient, EMS - History of Present Illness Mechanism of head injury: Fell Where head injury occurred: Home - Additional information Additional information: 58-year-old male with severe COPD and alcohol dependence presents to the emergency department via EMS after experiencing a ground-level fall. Patient reports he has been having multiple falls recently and he says that this is mos tly related to his end-stage COPD, he is on room air at home. Patient said that he is unsure if he passed out before after he fell but he somehow lost consciousness while he was coughing fell backwards and hit the back of his head. Bleeding is well-controlled he denies any use of blood thinners. Per medics patient has had 5 drinks of vodka today patient is unwilling to quantify how much vodka this means. EMS did visualize the patient taking additional drinks of vodka prior to coming to the emergency department before they told him he needed to stop. He has no focal neurological deficits but does appear to be intoxicated. PD PAST MEDICAL HISTORY - Past Medical History Past Medical History: Yes Cardiovascular: None Respiratory: Asthma, COPD Neuro: None Endocrine/Autoimmune: None GI: Hepatitis, Cirrhosis : None HEENT: Other Psych: Depression Musculoskeletal: None Derm: None - Past Surgical History Past Surgical History: Yes Ortho: Knee replacement - Present Medications Home Medications: Ambulatory Orders Medication Instructions Recorded Confirmed Albuterol Sulfate [Proair Hfa 2 puffs INH PRN PRN 05/03/18 12/16/22 Inhaler] Meloxicam [Mobic] 7.5 mg PO BID PRN #20 tablet 03/25/19 12/16/22 Omeprazole 1 tab ORAL DAILY 03/25/19 12/16/22 Budesonide/Formoterol Fumarate 10.2 gm IH DAILY #1 unit 10/10/21 12/16/22 [Symbicort 80-4.5 Mcg Inhaler] Albuterol Sulf [Ventolin Hfa 1 - 2 puffs INH Q4HR PRN #18 gm 12/16/22 Inhaler] Tiotropium [place] [Spiriva 18 mcg INH DAILY 12/16/22 12/16/22 Handihaler] predniSONE [Prednisone 21-TAB dose 60 mg PO QDAC 6 Days #21 tab 12/16/22 pack] - Allergies Allergies/Adverse Reactions: Allergies Allergy/AdvReac Type Severity Reaction Status Date / Time cephalexin monohydrate * Allergy Severe Respiratory Verified 12/07/23 17:04 [From Keflex] Penicillins Allergy Severe Respiratory Verified 12/07/23 17:04 - Social History Does the pt smoke?: Yes Smoking Status: Current every day smoker Does the pt drink ETOH?: Yes Does the pt have substance abuse?: Yes - Immunizations Immunizations are current?: Yes - POLST Patient has POLST: No PD ED PE NORMAL - Vitals Vital signs reviewed: Yes - General General: Alert and oriented X 3, No acute distress, Well developed/nourished - HEENT HEENT: PERRL, Moist mucous membranes, Other (Hematoma with 2 lacerations to the posterior scalp) - Neck Neck: No bony TTP, No adenopathy, C-Spine cleared by NEXUS criteria - Cardiac Cardiac: No murmur, No gallop - Respiratory Respiratory: No respiratory distress - Abdomen Abdomen: Normal bowel sounds, Non tender - Derm Derm: Other (two lacerations to posterior scalp. 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, No motor deficit, Normal speech Eye Opening: Spontaneous Motor: Obeys Commands Verbal: Oriented GCS Score: 15 - Psych Psych: Other (irritable, aggitated) Results - Vitals Vitals: Vital Signs - 24 hr 12/07/23 12/07/23 17:00 18:15 Temperature 36.0 C L Heart Rate 112 H 100 Respiratory 20 20 Rate Blood Pressure 154/114 H 132/101 H O2 Saturation 96 93 Oxygen O2 Source Room air - Labs Labs: Laboratory Tests 12/07/23 12/07/23 17:12 17:12 WBC 8.7 RBC 4.81 Hgb 15.6 Hct 47.3 MCV 98.3 H MCH 32.4 H MCHC 33.0 RDW 16.4 H Plt Count 217 MPV 9.5 Neut # (Auto) 5.6 Lymph # (Auto) 2.4 [place] # (Auto) 0.6 Eos # (Auto) 0.1 Baso # (Auto) 0.1 Absolute Nucleated RBC 0.00 Nucleated RBC % 0.0 Sodium 137 Potassium 3.9 Chloride 99 L Carbon Dioxide 25 Anion Gap 13.0 BUN 8 Creatinine 0.7 Estimated GFR (MDRD) 116 Glucose 102 Calcium 9.1 Total Bilirubin 0.5 AST 40 ALT 34 Alkaline Phosphatase 71 Total Protein 7.4 Albumin 4.6 Globulin 2.8 Albumin/Globulin Ratio 1.6 Ethyl Alcohol 325.6 Procedures - Laceration (location) Scalp Posterior Length in cm: 5 Wound type: Linear (x2) Anesthesia: Lidocaine 1% Wound preparation: Irrigated copiously NS, Wound explored Skin layer closure: Ernie (Three ernie to the right laceration, to ernie to the left laceration) Other: Patient tolerated well, No complications PD Medical Decision Making - ED course ED course: 58-year-old male brought in via EMS today after he says he had a loss of consciousness after coughing so hard that he passed out fell backwards hit the back of his head on the ground with 2 lacerations. Lacerations repaired in simple manner with a total of [address] was complete which was overall inconclusive. I spoke with the radiologist who reports that there was areas of hypoattenuation within the left basal ganglia, left thalamus and left basal cistern as well as calcifications within the left basal cistern hypoattenuation. Radiologist notes that although these are unusual locations for traumatic intraparenchymal or subarachnoid hemorrhage cannot be excluded and he recommended a repeat head CT in 4 hours. When patient was given these updates he adamantly declined to stay for further evaluation and workup he said that he needed to get the bus home and he did not have a ride and he did not want to stay here any longer. It was very clearly articulated to the patient that there is a possibility that he could have a brain bleed which could result in , stroke, permanent neurological damage and patient said that he did not care and wanted to discharge home. I heard him discussing with his family the CT findings so I am confident that the patient understood and was able to provide teach back. CBC was complete, hemoglobin and hematocrit are stable with no leukocytosis, chemistry does not show any significant abnormalities, EtOH level was 325.6, given patient's significant dependence on alcohol he did not have any alcohol withdrawal symptoms and I believe that patient functions at baseline with a very high EtOH level. He was able to ambulate without any difficulty no focal neurological deficits and was able to provide appropriate teachback demonstrat ing pt is alert and oriented to situation Patient decided to leave AGAINST MEDICAL ADVICE. Discussion of the suspected diagnosis, possible brain bleed, was had with the patient. Also the risks of anastasia sosa AGAINST MEDICAL ADVICE which include but are not limited to , stroke, permanenet brain damage were discussed with the patient. [He] is of sound mind and still wants to leave AGAINST MEDICAL ADVICE. Patient understands they are welcome to return any time if they change their mind. Departure - Departure Disposition: 07 Against Medical Advice Clinical Impression: Laceration Head trauma Qualifiers: Encounter type: initial encounter Qualified Code(s): S09.90XA - Unspecified injury of head, initial encounter Condition: Good Instructions: ED Laceration Scalp Stitch Or Stap Comments: You are choosing to leave AGAINST MEDICAL ADVICE and this has been clearly explained to them that this could lead to , permanent brain damage, permanent neurological damage, or stroke. We have placed visual 5 ernie in the back of your head. Please keep these covered and moist at all times do not cleanse them with alcohol, iodine, hydrogen peroxide. Clean it with soap once a day rinse it well with water. In place either Vaseline or an [id number] antibiotic ointment on top of the ernie. Will need to have the ernie removed in 7 to 10 days. If you start to notice any signs or symptoms of infection which include fevers, chills, nausea, vomiting, worsening redness, drainage that looks yellow/green, or any other concerning symptoms please come back to the emergency department. If after you have left AGAINST MEDICAL ADVICE and you start to experience worsening neurological symptoms any change your mind and would like to continue further workup for your head injury please come back to the emergency department for further workup. Forms: PCP List Discharge Date/Time: 12/07/23 18:44
[2023-12-07 17:18] LABS: BASOPHILS # (AUTO) 0.1 10^3/uL (0.0-0.1); BASOPHILS % (AUTO) 0.7 %; EOSINOPHILS # (AUTO) 0.1 10^3/uL (0.0-0.7); EOSINOPHILS % (AUTO) 0.7 %; HCT - HEMATOCRIT 47.3 % (42.0-52.0); HGB - HEMOGLOBIN 15.6 g/dL (14.0-18.0); LYMPHOCYTES # (AUTO) 2.4 10^3/uL (1.5-3.5); LYMPHOCYTES % (AUTO) 27.1 %; MEAN CORPUSCULAR HEMOGLOBIN 32.4 pg (27.0-31.0); MEAN CORPUSCULAR VOLUME 98.3 fL (80.0-94.0); MEAN PLATELET VOLUME 9.5 fL (7.4-11.4); MONOCYTES # (AUTO) 0.6 10^3/uL (0.0-1.0); NEUTROPHILS # (AUTO) 5.6 10^3/uL (1.5-6.6); NEUTROPHILS % (AUTO) 64.2 %; PLT - PLATELET COUNT 217 10^3/uL (130-450); RED BLOOD COUNT 4.81 10^6/uL (4.70-6.10); RED CELL DISTRIBUTION WIDTH 16.4 % (12.0-15.0); WHITE BLOOD COUNT 8.7 x10^3/uL (4.8-10.8)
[2023-12-07 17:32] LABS: ALBUMIN 4.6 g/dL (3.2-5.5); ALBUMIN/GLOBULIN RATIO 1.6 (1.0-2.2); BILIRUBIN,TOTAL 0.5 mg/dL (0.2-1.0); CALCIUM 9.1 mg/dL (8.5-10.3); CREATININE 0.7 mg/dL (0.6-1.3); ETOH - ETHANOL 325.6 mg/dL; POTASSIUM 3.9 mmol/L (3.5-4.5); TOTAL PROTEIN 7.4 g/dL (6.4-8.9)
[2023-12-07] MEDS ORDERED: ACETAMINOPHEN 325 MG TABLET PO STA (17:43)
--- NOTE | 2023-12-07 17:54 | CT Report ---
PROCEDURE: Head WO INDICATIONS: ground level fall, head laceration TECHNIQUE: Noncontrast 4.5 mm thick angled axial sections acquired from the foramen magnum to the vertex. For r adiation dose reduction, the following was used: automated exposure control, adjustment of mA and/or kV according to patient size. COMPARISON: None. FINDINGS: Image quality: Excellent. CSF spaces: Basal cisterns are patent. No extra-axial fluid collections. Ventricles are normal in size and shape. Brain: No midline shift. Calcification is within the left basal ganglia. There is surrounding hypoat tenuation. Additional areas of hypoattenuation more posteriorly along the posterior aspect of the alverto lamus. Additional area of hyperattenuation in the left basal cistern Campbell-white matter interface is n ormal. Skull and face: Calvarium and visualized facial bones are intact, without suspicious lesions. Sinuses: Visualized sinuses and mastoids are clear. IMPRESSION: Areas of hypoattenuation within the left basal ganglia, left thalamus and left basal cistern. There i s associated calcification within the left basal cistern hypoattenuation. While these are unusual loc ations for traumatic intraparenchymal or subarachnoid hemorrhage, is not excluded. Recommend follow-u p head CT in 4 hours to assess stability. The focus of hyperattenuation within the left basal cistern appears continuous with a cerebral vein, thrombosis is not entirely excluded. Findings were discussed with provider at time of dictation. Reviewed by: Micky Mercedes MD on 12/07/2023 5:53 PM PST Approved by: Micky Mercedes MD on 12/07/2023 5:53 PM PST Station ID: [id number]
[2023-12-07] MEDS ORDERED: LIDOCAINE 1%-EPI 1:100000 10 ML MDV SUBQ STA (18:11)
[2023-12-07] MEDS ORDERED: LIDOCAINE 2%-EPI 1:100000 20 ML MDV ONE (18:17)
[2023-12-07] MEDS ORDERED: LIDOCAINE 2%-EPI 1:100000 20 ML MDV SUBQ STA (18:19)
[2023-12-07 18:23] VITALS: BP 132/101; O2SAT 93
== END 2023-12-07 18:44 | disposition left against medical advice (07) ==
LOC: EDUNIT# → ED 16:58
DX: S01.01XA Laceration without foreign body of scalp, initial encounter (principal); W19.XXXA Unspecified fall, initial encounter; Z91.81 History of falling; F17.200 Nicotine dependence, unspecified, uncomplicated
CPT/HCPCS: 12002; 36415; 70450; 80053; 80320; 85025; 99284; A9270

== ENCOUNTER 2023-12-08 01:19 | Outpatient (CLI) | payer MEDICAID | END 2023-12-08 01:20 | disposition critical access hospital (66) | LOC: EMS 01:19 | DX: R42 Dizziness and giddiness (principal) | CPT/HCPCS: A0425; A0429; A0999 ==

== ENCOUNTER 2023-12-08 01:38 | Emergency (ER) | payer MEDICAID ==
--- NOTE | 2023-12-08 02:06 | ED Physician Documentation ---
PD HPI HEAD INJURY - Stated complaint Stated Complaint: FALL - Chief complaint Chief Complaint: General - History obtained from History obtained from: Patient - History of Present Illness Mechanism of head injury: Fell Timing - onset: Yesterday Location of injury: Back Quality of pain: Throbbing, Aching Associated symptoms: No: AMS, Neck pain Symptoms worsen with: Palpation Recently seen: Emergency Dept (he was seen in ED yesterday for injury after the fall noted above. Had CT head that showed some calcifacations versus small petechial bleeds with recommendation of repeat imaging at 4 hours to see if interval change. He left AMA but back now for re-eval. Left earlier due to need for cigarettes/EtOH.) Review of Systems Neurologic: reports: Headache. denies: Focal weakness, Numbness, Altered mental status PD PAST MEDICAL HISTORY - Past Medical History Cardiovascular: None Respiratory: Asthma, COPD Neuro: None Endocrine/Autoimmune: None GI: Hepatitis, Cirrhosis : None HEENT: Other Psych: Depression Musculoskeletal: None Derm: None - Past Surgical History Past Surgical History: Yes Ortho: Knee replacement - Present Medications Home Medications: Ambulatory Orders Medication Instructions Recorded Confirmed Albuterol Sulfate [Proair Hfa 2 puffs INH PRN PRN 05/03/18 12/16/22 Inhaler] Meloxicam [Mobic] 7.5 mg PO BID PRN #20 tablet 03/25/19 12/16/22 Omeprazole 1 tab ORAL DAILY 03/25/19 12/16/22 Budesonide/Formoterol Fumarate 10.2 gm IH DAILY #1 unit 10/10/21 12/16/22 [Symbicort 80-4.5 Mcg Inhaler] Albuterol Sulf [Ventolin Hfa 1 - 2 puffs INH Q4HR PRN #18 gm 12/16/22 Inhaler] Tiotropium [place] [Spiriva 18 mcg INH DAILY 12/16/22 12/16/22 Handihaler] predniSONE [Prednisone 21-TAB dose 60 mg PO QDAC 6 Days #21 tab 12/16/22 pack] - Allergies Allergies/Adverse Reactions: Allergies Allergy/AdvReac Type Severity Reaction Status Date / Time cephalexin monohydrate * Allergy Severe Respiratory Verified 12/07/23 17:04 [From Keflex] Penicillins Allergy Severe Respiratory Verified 12/07/23 17:04 - Social History Does the pt smoke?: Yes Smoking Status: Current every day smoker Does the pt drink ETOH?: Yes Does the pt have substance abuse?: Yes - Immunizations Immunizations are current?: Yes - POLST Patient has POLST: No PD ED PE NORMAL - Vitals Vital signs reviewed: Yes - General General: Alert and oriented X 3, No acute distress (slightly anxious but pleasant and conversant, sociable. ), Well developed/nourished - HEENT HEENT: PERRL, EOMI, Other (back of head with stapled wound without bleeding nor drainage. 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 white areas interpreted as calcifciations. no acute traumatic injury. ), EMP independent interpretation of test PD Medical Decision Making - ED course Complexity details: reviewed results (head CT compared to recent prior showed no interval change. white areas interpreted as calcifications. ), considered differential (here for follow up head CT to eval for ICH versus calcifications on head CT yesterday. He is anxious here. I offfered nicotine patch, ativan, and tylenol. He was agreeable. He felt better with meds and was able to relax for head CT and time for report. ), d/w patient Departure - Departure Disposition: 01 Home, Self Care Clinical Impression: History of recent fall, Brain parenchymal calcification Condition: Stable Record reviewed to determine appropriate education?: Yes Comments: Your CT scan looks the same as yesterday. The areas of whiteness that they were concerned were bleeding versus calcification have not changed so are read as calcifications. This can represent old scarring or injury. It does not represent an acute bleed or injury. Continue with the instructions for your scalp wound. It is okay to wash and shower. Apply ointment to it once or twice daily so it is stays soft. Recheck if signs of infection. Tylenol if needed for pains. Otherwise normal activity and such. Forms: PCP List Discharge Date/Time: 12/08/23 04:43
[2023-12-08 02:07] VITALS: BP 149/96; O2SAT 97
[2023-12-08] MEDS ORDERED: LORazepam 1 MG TABLET PO STA (02:26)
[2023-12-08] MEDS ORDERED: NICOTINE 21 MG PATCH TOP STA (02:26)
[2023-12-08] MEDS ORDERED: ACETAMINOPHEN 325 MG TABLET PO STA (02:26)
[2023-12-08] MEDS ORDERED: ALBUTEROL 1 PUFF INH STA (02:28)
--- NOTE | 2023-12-08 08:07 | CT Report ---
PROCEDURE: Head WO INDICATIONS: recent head injury, equlvocal CT earlier, repeat. TECHNIQUE: Noncontrast 4.5 mm thick angled axial sections acquired from the foramen magnum to the vertex. For r adiation dose reduction, the following was used: automated exposure control, adjustment of mA and/or kV according to patient size. COMPARISON: 920. FINDINGS: Image quality: Excellent. CSF spaces: Basal cisterns are patent. No extra-axial fluid collections. Ventricles are normal in size and shape. Brain: No midline shift. Areas of hyperdensity within the left basal ganglia and thalamus appear rel atively stable accounting for technical differences/motion between the 2 exams. No new areas of hemor rhage are identified. Campbell-white matter interface is normal. Skull and face: Calvarium and visualized facial bones are intact, without suspicious lesions. Sinuses: Visualized sinuses and mastoids are clear. IMPRESSION: Stable appearance of hyperdensities within the left basal ganglia and thalamus. As previously identif ied, appearance raises suspicion for calcification given location and appearance within some areas of the hyperdensity. However, as previously noted, small underlying areas of acute/subacute hemorrhage cannot be excluded. Recommend close clinical correlation and interval follow-up as indicated. The above findings are concordant with preliminary report. Reviewed by: Lisa Gordon MD on 12/08/2023 8:06 AM [facility] Approved by: Lisa Gordon MD on 12/08/2023 8:06 AM [facility] Station ID: [id number]
== END 2023-12-08 04:43 | disposition home or self-care (01) ==
LOC: EDUNIT# → ED 01:38
DX: G93.89 Other specified disorders of brain (principal); Z91.81 History of falling; J44.9 Chronic obstructive pulmonary disease, unspecified; F17.200 Nicotine dependence, unspecified, uncomplicated; Z79.899 Other long term (current) drug therapy; Z79.51 Long term (current) use of inhaled steroids
CPT/HCPCS: 70450; 99283; 99284; A9270; J8499

== ENCOUNTER 2024-02-23 11:15 | Outpatient (CLI) | payer MEDICAID ==
[2024-02-23 17:56] LABS: BASOPHILS # (AUTO) 0.1 10^3/uL (0.0-0.1); BASOPHILS % (AUTO) 1.1 %; EOSINOPHILS # (AUTO) 0.1 10^3/uL (0.0-0.7); EOSINOPHILS % (AUTO) 1.5 %; HCT - HEMATOCRIT 49.6 % (42.0-52.0); HGB - HEMOGLOBIN 15.8 g/dL (14.0-18.0); LYMPHOCYTES # (AUTO) 2.3 10^3/uL (1.5-3.5); LYMPHOCYTES % (AUTO) 41.7 %; MEAN CORPUSCULAR HEMOGLOBIN 32.5 pg (27.0-31.0); MEAN CORPUSCULAR HGB CONC 31.9 g/dL (32.0-36.0); MEAN CORPUSCULAR VOLUME 102.1 fL (80.0-94.0); MEAN PLATELET VOLUME 10.3 fL (7.4-11.4); MONOCYTES # (AUTO) 0.6 10^3/uL (0.0-1.0); MONOCYTES % (AUTO) 11.3 %; NEUTROPHILS # (AUTO) 2.4 10^3/uL (1.5-6.6); NEUTROPHILS % (AUTO) 44.2 %; PLT - PLATELET COUNT 392 10^3/uL (130-450); RED BLOOD COUNT 4.86 10^6/uL (4.70-6.10); RED CELL DISTRIBUTION WIDTH 13.8 % (12.0-15.0); WHITE BLOOD COUNT 5.4 x10^3/uL (4.8-10.8)
[2024-02-23 17:59] LABS: ALBUMIN 4.5 g/dL (3.2-5.5); ALBUMIN/GLOBULIN RATIO 1.5 (1.0-2.2); ALKALINE PHOSPHATASE 63 IU/L (42-121); ALT ALANINE AMINOTRANSFERASE 16 IU/L (10-60); AST ASPARTATE AMINOTRANSFERASE 19 IU/L (10-42); BILIRUBIN,TOTAL 0.2 mg/dL (0.2-1.0); BUN - BLOOD UREA NITROGEN 14 mg/dL (6-20); CALCIUM 9.8 mg/dL (8.5-10.3); CARBON DIOXIDE - CO2 23 mmol/L (21-32); CHLORIDE 105 mmol/L (101-111); CHOL/HDL RATIO 5.5 (<5.0); CHOLESTEROL 214 mg/dL; CREATININE 0.8 mg/dL (0.6-1.3); GFR - MDRD 100 (>89); GLUCOSE 82 mg/dL (74-104); HDL CHOLESTEROL 39 mg/dL; LDL CHOLESTEROL,CALCULATED 102 mg/dL; LDL/HDL RATIO 2.6 (<3.6); POTASSIUM 4.3 mmol/L (3.5-4.5); SODIUM 137 mmol/L (135-145); TOTAL PROTEIN 7.5 g/dL (6.4-8.9); TRIGLYCERIDES 363 mg/dL (48-352); VLDL CHOLESTEROL 73 mg/dL
[2024-02-23 18:14] LABS: THYROID STIMULATING HORMONE 1.69 uIU/mL (0.34-5.60)
== END 2024-02-23 11:16 | disposition home or self-care (01) ==
LOC: LAB.N 11:15
PROVIDERS: ATTEND Physician Assistant Medical
DX: Z00.00 Encounter for general adult medical examination without abnormal findings (principal); Z12.5 Encounter for screening for malignant neoplasm of prostate
CPT/HCPCS: 36415; 80053; 80061; 83721; 84153; 84443; 85025